=== PATIENT | male | born 1965 | race Caucasian/White ===

== ENCOUNTER 2018-04-28 23:54 | Emergency (ER) | payer MEDICAID ==
[~2018-04-28] VITALS: Ht 177.8 cm; Wt 88.5 kg
[2018-04-29] MEDS ORDERED: GABAPENTIN300 MG PO (00:34)
== END 2018-04-29 01:43 | disposition home or self-care (01) ==
LOC: ED 23:54
DX: S06.9X1A Unspecified intracranial injury with loss of consciousness of 30 minutes or less, initial encounter (principal); F10.129 Alcohol abuse with intoxication, unspecified; E11.40 Type 2 diabetes mellitus with diabetic neuropathy, unspecified; G47.30 Sleep apnea, unspecified; Z79.899 Other long term (current) 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; W07.XXXA Fall from chair, initial encounter
CPT/HCPCS: 70450; 72125; 99284-25

== ENCOUNTER 2019-01-20 19:40 | Emergency (ER) | payer MEDICAID ==
[~2019-01-20] VITALS: Ht 185.4 cm; Wt 99.8 kg
--- OUTSIDE RECORDS SUMMARY | ~2019-01-20 | XMS | Encounter Summary ---
Demographics + + + | Address | [address] | | | [place] [address] | + + + | Home Phone | | + + + | Preferred Language | Unknown | + + + | Marital Status | Single | + + + | Jewish Affiliation | Unknown | + + + | Race | White | + + + | Ethnic Group | Not or | + + + Author + + + | Author | [facility] | + + + | Organization | [facility] | + + + | Address | Unknown | + + + | Phone | Unavailable | + + + Support + + +---------+ + | Name | Relationship | Address | Phone | + + +---------+ + | Eleonora Altamirano | ECON | Unknown | | + + +---------+ + Care Team Providers + +------+ + | Care Student Liaison Officer Name | Role | Phone | + +------+ + | Silvana Sagastume | PCP | | + +------+ + Encounter Details +--------+ + + + + | Date | Type | Department | Care Team | Description | +--------+ + + + + | 11/29/ | Setter Helper | Orthopaedics at | Alexus Pineda | Back pain, | | 2017 | | [facility] [address] | [place] [address] | unspecified back | | | | Ave Mailcode: CH12A | | location, | | | | Center for [facility] | | unspecified back | | | | and Healing, | | pain laterality, | | | | Building | | unspecified | | | | Floor [facility] [place] | | chronicity (Primary | | | | [address] | | Dx) | | | | [phone] | | | +--------+ + + + + Social History + +-------+ +--------+------+ | Tobacco Use | Types | Packs/Day | Years | Date | | | | | Used | | + +-------+ +--------+------+ | Current Every Day | | | 17 | | | Smoker | | | | | + +-------+ +--------+------+ + +------+---+---+ | Smokeless Tobacco: | Chew | | | | Current User | | | | + +------+---+---+ + + + | Sex Assigned at | Date Recorded | | | | + + + | Not on file | | + + + + + + + | Job Start Date | Occupation | Industry | + + + + | Not on file | Not on file | Not on file | + + + + + + + + | Travel History | Travel Start | Travel End | + + + + + + | No recent travel history available. | + + documented as of this encounter Plan of Treatment Not on filedocumented as of this encounter Results X-RAY SPINE LUMBOSACRAL 2 VIEWS (11/30/2016 3:18 PM PDT) + + | Specimen | + + | | + + + + + | Narrative | Performed At | + + + | STUDY: SPINE LUMBOSACRAL 2 VIEWS HISTORY: Pain. COMPARISON: | [facility] | | None. FINDINGS: The vertebral body heights are preserved. | RADIOLOGY VOICE | | Relative preservation of the intervertebral disc heights with early | RECOGNITION | | clawlike osteophyte production at L3-L4. The alignment is | | | anatomic. There is no significant change in alignment between flexion | | | and extension imaging. Mild facet osteoarthrosis from L4-S1. | | | IMPRESSION: Mild facet osteoarthrosis at the lower lumbar spine | | | without a significant change in alignment between flexion and | | | extension imaging. I have personally reviewed the images and, | | | if necessary, edited the report. I agree with the report as now | | | presented. | | + + + + + | Procedure Note | + + | Service Account, Radiant Res In Interface - 11/30/2016 3:26 PM PDT STUDY: SPINE | | LUMBOSACRAL 2 VIEWSHISTORY: Pain.COMPARISON: None.FINDINGS: The vertebral body heights | | are preserved.Relative preservation of the intervertebral disc heights with early | | clawlike osteophyte production at L3-L4.The alignment is anatomic. There is no | | significant change in alignment between flexion and extension imaging.Mild facet | | osteoarthrosis from L4-S1.IMPRESSION: Mild facet osteoarthrosis at the lower lumbar | | spine without a significant change in alignment between flexion and extension imaging.I | | have personally reviewed the images and, if necessary, edited the report. I agree with | | the report as now presented. | | | |Relative preservation of the intervertebral disc heights with early clawlike osteophyte pro duction at L3-L4. | | | |The alignment is anatomic. There is no significant change in alignment between flexion and extension imaging. | | | |Mild facet osteoarthrosis from L4-S1. | | | |IMPRESSION: | | | |Mild facet osteoarthrosis at the lower lumbar spine without a significant change in alignme nt between flexion and extension imaging. | | | | | |I have personally reviewed the images and, if necessary, edited the report. I agree with t he report as now presented. | + + + +---------+ + + | Performing | Address | City/State/Zipcode | Phone Number | | Organization | | | | + +---------+ + + | [facility] | | | | | VOICE RECOGNITION | | | | + +---------+ + + X-RAY SCOLI SPINE ENTR MITCH FALK &LAT (11/30/2016 3:17 PM PDT) + + | Specimen | + + | | + + + + + | Narrative | Performed At | + + + | STUDY: SPINE ENTR SRVY STDY AP & LAT HISTORY: Pain. | [facility] | | COMPARISON: 11/30/2016 FINDINGS: There are 5 run-kyd-vsxwums | RADIOLOGY VOICE | | lumbar-type vertebral bodies. There is no significant curvature of | RECOGNITION | | the thoracolumbar spine on the frontal image. There is no significant | | | coronal imbalance. There is approximately 3 cm of negative sagittal | | | imbalance. The well-visualized vertebral body heights are | | | preserved. There is straightening of normal cervical lordosis. | | | IMPRESSION: Scoliosis survey as described above. I have | | | personally reviewed the images and, if necessary, edited the report. | | | I agree with the report as now presented. | | + + + + ---+ | Procedure Note | + ---+ | Service Account, Radiant Res In Interface - 11/30/2016 3:34 PM PDT STUDY: SPINE ENTR | | SRVY STDY AP & LATHISTORY: Pain.COMPARISON: 11/30/2016FINDINGS: There are 5 | | ole-odu-rqjyezl lumbar-type vertebral bodies.There is no significant curvature of the | | thoracolumbar spine on the frontal image. There is no significant coronal imbalance. | | There is approximately 3 cm of negative sagittal imbalance.The well-visualized vertebral | | body heights are preserved. There is straightening of normal cervical | | lordosis.IMPRESSION: Scoliosis survey as described above.I have personally reviewed the | | images and, if necessary, edited the report. I agree with the report as now presented. | |There are 5 tql-zeu-mbbvwpw lumbar-type vertebral bodies. | | | |There is no significant curvature of the thoracolumbar spine on the frontal image. There is no significant coronal imbalance. There is approximately 3 cm of negative sagittal imbalanc e. | | | |The well-visualized vertebral body heights are preserved. There is straightening of normal cervical lordosis. | | | |IMPRESSION: | | | |Scoliosis survey as described above. | | | | | |I have personally reviewed the images and, if necessary, edited the report. I agree with t shalonda report as now presented. | + ---+ + +---------+ + + | Performing | Address | City/State/Zipcode | Phone Number | | Organization | | | | + +---------+ + + | [facility] | | | | | VOICE RECOGNITION | | | | + +---------+ + + documented in this encounter Visit Diagnoses + + | Diagnosis | + + | Back pain, unspecified back location, unspecified back pain laterality, unspecified | | chronicity - Primary | + + documented in this encounter"
--- OUTSIDE RECORDS SUMMARY | ~2019-01-20 | XMS | Encounter Summary ---
Demographics + + + | Address | [address] | | | [place] [address] | + + + | Home Phone | | + + + | Preferred Language | Unknown | + + + | Marital Status | Single | + + + | Congregation Affiliation | Unknown | + + + | Race | White | + + + | Ethnic Group | Not or | + + + Author + + + | Author | [facility] | + + + | Organization | [facility] | + + + | Address | Unknown | + + + | Phone | Unavailable | + + + Support + + +---------+ + | Name | Relationship | Address | Phone | + + +---------+ + | Eleonora Altamirano | ECON | Unknown | | + + +---------+ + Care Team Providers + +------+ + | Care Research Hydraulic Engineer Name | Role | Phone | + +------+ + | Silvana Sagastume | PCP | | + +------+ + Encounter Details +--------+ + + + + | Date | Type | Department | Care Team | Description | +--------+ + + + + | 11/30/ | Hospital | Radiology/Imaging | Alexus Pineda | | | 2016 | Encounter | Lab at [facility] [address] | [place] | | | | | [address] Mailcode: | | | | | | [facility] | | | | | | and Healing, | | | | | | | | | | | | Floor [place], [place] | | | | | | [address] | | | | | | [phone] | | | +--------+ + + + [...]
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
--- OUTSIDE RECORDS SUMMARY | ~2019-01-20 | XMS | Encounter Summary ---
Demographics + + + | Address | [address] | | | [place] [address] | + + + | Home Phone | | + + + | Preferred Language | Unknown | + + + | Marital Status | Single | + + + | Religion Affiliation | Unknown | + + + | Race | White | + + + | Ethnic Group | Not or | + + + Author + + + | Author | [facility] | + + + | Organization | [facility] | + + + | Address | Unknown | + + + | Phone | Unavailable | + + + Support + + +---------+ + | Name | Relationship | Address | Phone | + + +---------+ + | Eleonora Altamirano | ECON | Unknown | | + + +---------+ + Care Team Providers + +------+ + | Care Readers' Advisory Service Librarian Name | Role | Phone | + [...] | with | [address] | [place], [place] | | | | | neurogenic | [facility], | [address] | | | | | claudication | [place] | Phone: | | | | | Facet | [address] | [phone] | | | | | arthropathy | Phone: | Fax: | | | | | Protrusion | [phone] | [phone] | | | | | of lumbar | Fax: | | | | | | intervertebr | [phone] | | | | | | al [...] | | | | stenosis | PA-C [address] | | | | | | with | [address] | | | | | | neurogenic | [place], | | | | | | claudication | [place] | | | | | | Facet | [phone] | | | | | | arthropathy | Phone: | | | | | | Procedures | [phone] | | | | | | ACUPUNCTURE | Fax: | | | | | | - EXTERNAL | [phone] | | | | | | ONLY [...] | | | | stenosis | PA-C 0072 | | | | | | with | [address] | | | | | | neurogenic | [facility], | | | | | | claudication | [place] | | | | | | Facet | [address] | | | | | | arthropathy | Phone: | | | | | | Procedures | [phone] | | | | | | PHYSICAL | Fax: | | | | | | THERAPY | [phone] | | | | | | REFERRAL [...] Closed | | Spine | Diagnoses | Isabella, | Harris, | | | | | Other | MAX Pina | Jared Ramírez PA-C | | | | | intervertebr | [address] | [address] | | | | | al disc | [address] | [address] | | | | | degeneration | [place], [place] | [place], [place] | | | | | , lumbar | [address] | [address] | | | | | region | Phone: | Phone: | | | | | | [phone] | [phone] | | | | | | Fax: | Fax: | | | | | | [phone] | [phone] | +--------+--------+ + + + + Encounter Details +--------+---------+ + + + | Date | Type | Department | Care Team | Description | +--------+---------+ + + + | 10/07/ | Office | Spine Center at | Jared Harris, | Lumbar stenosis with | | 2017 | Visit | [facility] [address] | [place] [address] | neurogenic | | | | [place]ondra Mailcode: | [place] [facility] [place] | claudication | | | | [facility] | [address] | (Primary Dx); Facet | | | | and Healing, | [phone] | arthropathy; | | | | Building [address] | | Protrusion of lumbar | | | | [place], [place] | | intervertebral disc | | | | [address] | | | | | | [phone] | | | +--------+---------+ + + + [...] without relief -He reports numerous injections at [facility] including Epidural steroid injectio ns x 6 with 20% relief in pain x 1 week and multiple lumbar RFAs, the last 2 months with 30% x 2 weeks. The patient has not tried: -Acupuncture Review of Systems: All other systems were reviewed by me personally on a complete review of systems questionna jamil that will be scanned into [employer]. Current medication list: Current Outpatient Prescriptions Medication [...] pressure) dependence DMII (diabetes mellitus, type 2) ([facility]) GERD (gastroesophageal reflux disease) DAXA [...] to date includi ng numerous injections in [place]. MRI outlined above with central disc protrusion at L5-S1 an d multifactorial central stenosis at L3-4 including congential narrowing and facet hypertrop hy. Plan: -Xrays today without dynamic instability -Asked patient to bring current medications to next appointment to ensure they are updated -Will track down EMG/NCS report from [facility] 1 year ago and will update EPIC if this adds to diagnosis -Counseled on necessity of nicotine cessation -Counseled on multifactorial nature of axial spine pain, including facet arthropathy -Referral to Acupuncture -Referral to Physical Therapy -Continue management of pain medication by PCP -Referral to [facility] spine surgeon I spent 46 minutes wfwq-vp-clhy with the patient. I spent more than 50% of this visit in co ordination of care and counseling in which we discussed diagnosis, treatment, imaging studie s and follow-up. Jared Harris PA-C SPINE CENTER AT [address] [address] [facility] OPEN NOTE [[id number]] documented in this e ncounter Plan of [...]
--- OUTSIDE RECORDS SUMMARY | ~2019-01-20 | XMS | Encounter Summary ---
Demographics + + + | Address | [address] | | | [place] [address] | + + + | Home Phone [...] Author + + + | Author | [facility] | + + + | Organization | [facility] | + + + | Address | Unknown | + + + | Phone | Unavailable | + + + Support + + +---------+ + | Name | Relationship | Address | Phone | + + +---------+ + | Eleonora Altamirano | ECON | Unknown | | + + +---------+ + Care Team Providers + +------+ + | Care Event Marketing Intern Name | Role | Phone | + +------+ + | Silvana Sagastume | PCP | | + +------+ + Encounter Details +--------+ + + + + | Date | Type | Department | Care Team | Description | +--------+ + + + + | 11/30/ | Hospital | Radiology/Imaging | Alexus Pineda | | | 2016 | Encounter | Lab at [facility] [address] | [place] José | | | | | [address] Mailcode: | | | | | | [facility] | | | | | | and Healing, | | | | | | | | | | | | Floor [place], [place] | | | | | | [address] | | | | | | [phone] | | | +--------+ + + + [...] | Results for this | | ENTR VY AP &LAT | e | 3:17 PM [...] this encounter Results X-RAY SCOLI SPINE ENTR SRVY AP &LAT (11/30/2016 3:17 PM PDT) + + | Specimen | + + | | + + + + + | Narrative | Performed At | + + + | STUDY: SPINE ENTR SRVY KUSUM AP & LAT HISTORY: Pain. | [facility] | | COMPARISON: 11/30/2016 FINDINGS: There are 5 hgd-wth-abdcwyw | RADIOLOGY VOICE | | lumbar-type vertebral [...] Pain.COMPARISON: 11/30/2016FINDINGS: There are 5 | | eej-hha-nswoike lumbar-type vertebral bodies.There is no significant curvature [...] as now presented. | |There are 5 trl-ohu-ysrvtxz lumbar-type vertebral bodies. | | | |There [...]
--- OUTSIDE RECORDS SUMMARY | ~2019-01-20 | XMS | Clinical Summary ---
Demographics + + + | Address | [address] | | | [place] [address] | + + + | Home Phone | | + + + | Preferred Language | Unknown | + + + | Marital Status | Single | + + + | Anabaptism Affiliation | Unknown | + + + [...] Team Providers + +------+ + | Care Outreach Associate Name | Role | Phone | + +------+ + | Tanika Silvana MAX | PCP | | + +------+ + Source Comments LUPE is fully live on both [facility] Ambulatory and [facility] InPatient.[facility] Allergies No Known Allergies Medications + [...] | | | + +--------+ +--------+-------+---------+--------+ | 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
--- OUTSIDE RECORDS SUMMARY | ~2019-01-20 | XMS | Encounter Summary ---
Demographics + + + | Address | [address] | | | [place] [address] | + + + | Home Phone | | + + + | Preferred Language | Unknown | + + + | Marital Status | Single | + + + | Adventist Affiliation | Unknown | + + + [...] Team Providers + +------+ + | Care Adjunct Professor Name | Role | Phone | + +------+ + | Silvana Sagastume | PCP | | + +------+ + Encounter Details +--------+ + + + + | Date | Type | Department | Care Team | Description | +--------+ + + + + | 11/29/ | Foxing Cutting Machine Operator | Orthopaedics at | Alexus Pineda | Back pain, | | 2017 | | [facility] [address] | [place] José | unspecified back | | | | Ave Mailcode: CH12A | | location, | | | | [facility] | | unspecified back | | | | and Healing, | | pain laterality, | | | | Building | | unspecified | | | | Floor [facility] [place] | | chronicity (Primary | | | | [address] | | Dx) | | | | [phone] | | | +--------+ + + + [...] | COMPARISON: 11/30/2016 FINDINGS: There are 5 kbw-vyv-hprtssf | RADIOLOGY VOICE | | lumbar-type vertebral [...] Pain.COMPARISON: 11/30/2016FINDINGS: There are 5 | | vzv-ezo-gfoxdgo lumbar-type vertebral bodies.There is no significant curvature [...] as now presented. | |There are 5 kue-hfg-fnnnkbd lumbar-type vertebral bodies. | | | |There [...]
--- OUTSIDE RECORDS SUMMARY | ~2019-01-20 | XMS | Encounter Summary ---
Demographics + + + | Address | [address] | | | [place] [address] | + + + | Home Phone | | + + + | Preferred Language | Unknown | + + + | Marital Status | Single | + + + | Amish Affiliation | Unknown | + + + | Race | White | + + + | Ethnic Group | Not or | + + + Author + + + | Author | [facility] | + + + | Organization | [facility] | + + + | Address | Unknown | + + + | Phone | Unavailable | + + + Support + + +---------+ + | Name | Relationship | Address | Phone | + + +---------+ + | Eleonora Altamirano | ECON | Unknown | | + + +---------+ + Care Team Providers + +------+ + | Care Manufacturing Mechanic Name | Role | Phone | + +------+ + | Silvana Sagastume | PCP | | + +------+ + Encounter Details +--------+ + + + + | Date | Type | Department | Care Team | Description | +--------+ + + + + | 11/30/ | Hospital | Radiology/Imaging | Alexus Pineda | | | 2016 | Encounter | Lab at [facility] [address] | [place] José | | | | | [address] Mailcode: | | | | | | [facility] | | | | | | and Healing, | | | | | | | | | | | | Floor [place], [place] | | | | | | [address] | | | | | | [phone] | | | +--------+ + + + [...] | COMPARISON: 11/30/2016 FINDINGS: There are 5 drt-diu-cppyoxb | RADIOLOGY VOICE | | lumbar-type vertebral [...] Pain.COMPARISON: 11/30/2016FINDINGS: There are 5 | | yxe-bkd-fpwzqmr lumbar-type vertebral bodies.There is no significant curvature [...] as now presented. | |There are 5 szt-jpx-vnrrvdb lumbar-type vertebral bodies. | | | |There [...]
--- OUTSIDE RECORDS SUMMARY | ~2019-01-20 | XMS | Encounter Summary ---
Demographics + + + | Address | [address] | | | [place] [address] | + + + | Home Phone | | + + + | Preferred Language | Unknown | + + + | Marital Status | Single | + + + | Denominational Affiliation | Unknown | + + + | Race | White | + + + | Ethnic Group | Not or | + + + Author + + + | Author | [facility] | + + + | Organization | [facility] | + + + | Address | Unknown | + + + | Phone | Unavailable | + + + Support + + +---------+ + | Name | Relationship | Address | Phone | + + +---------+ + | Eleonora Altamirano | ECON | Unknown | | + + +---------+ + Care Team Providers + +------+ + | Care Intertype Operator Name | Role | Phone | + +------+ + | Silvana Sagastume | PCP | | + +------+ + Encounter Details +--------+ + + + + | Date | Type | Department | Care Team | Description | +--------+ + + + + | 11/30/ | Hospital | Radiology/Imaging | Alexus Pineda | | | 2016 | Encounter | Lab at [facility] [address] | [place] José | | | | | [address] Mailcode: | | | | | | [facility] | | | | | | and Healing, | | | | | | | | | | | | Floor [place], [place] | | | | | | [address] | | | | | | [phone] | | | +--------+ + + + [...]
--- OUTSIDE RECORDS SUMMARY | ~2019-01-20 | XMS | Encounter Summary ---
Demographics + + + | Address | [address] | | | [place] [address] | + + + | Home Phone | | + + + | Preferred Language | Unknown | + + + | Marital Status | Single | + + + | Rastafarian Affiliation | Unknown | + + + | Race | White | + + + | Ethnic Group | Not or | + + + Author + + + | Author | [facility] | + + + | Organization | [facility] | + + + | Address | Unknown | + + + | Phone | Unavailable | + + + Support + + +---------+ + | Name | Relationship | Address | Phone | + + +---------+ + | Eleonora Altamirano | ECON | Unknown | | + + +---------+ + Care Team Providers + +------+ + | Care Manager Sales Name | Role | Phone | + +------+ + | Silvana Sagastume | PCP | | + +------+ + Encounter Details +--------+ + + + + | Date | Type | Department | Care Team | Description | +--------+ + + + + | 10/07/ | Hospital | Radiology/Imaging | Jared Harris, | | | 2016 | Encounter | Lab at [facility] [address] | [place] [address] | | | | | [address] Mailcode: | [place], [place] | | | | | [facility] | [address] | | | | | Health and Healing, | [phone] | | | | | [address] | | | | | | [place], [place] | | | | | | [address] | | | | | | [phone] | | | +--------+ + + + [...] | | | 17 | | | release(/EC) | BEFORE A MEAL | | | [...]
--- OUTSIDE RECORDS SUMMARY | ~2019-01-20 | XMS | Clinical Summary ---
Demographics + + + | Address | [address] | | | [place] [address] | + + + | Home Phone [...] Team Providers + +------+ + | Care Hotel Breakfast Attendant Name | Role | Phone | + +------+ + | Tanika Silvana MAX | PCP | | + +------+ + Source Comments LUPE is fully live on both [facility] Ambulatory and [facility] InPatient.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
--- OUTSIDE RECORDS SUMMARY | ~2019-01-20 | XMS | Encounter Summary ---
Demographics + + + | Address | [address] | | | [place] [address] | + + + | Home Phone | | + + + | Preferred Language | Unknown | + + + | Marital Status | Single | + + + | Sikhism Affiliation | Unknown | + + + | Race | White | + + + | Ethnic Group | Not or | + + + Author + + + | Author | [facility] | + + + | Organization | [facility] | + + + | Address | Unknown | + + + | Phone | Unavailable | + + + Support + + +---------+ + | Name | Relationship | Address | Phone | + + +---------+ + | Eleonora Altamirano | ECON | Unknown | | + + +---------+ + Care Team Providers + +------+ + | Care Labor Relations Manager Name | Role | Phone | + +------+ + | Silvana Sagastume | PCP | | + +------+ + Encounter Details +--------+ + + + + | Date | Type | Department | Care Team | Description | +--------+ + + + + | 10/07/ | Hospital | Radiology/Imaging | Jared Harris, | | | 2016 | Encounter | Lab at [facility] [address] | [place] [address] | | | | | [address] Mailcode: | [place], [place] | | | | | [facility] | [address] | | | | | Health and Healing, | [phone] | | | | | [address] | | | | | | [place], [place] | | | | | | [address] | | | | | | [phone] | | | +--------+ + + + [...]
--- OUTSIDE RECORDS SUMMARY | ~2019-01-20 | XMS | Encounter Summary ---
Demographics + + + | Address | [address] [facility] | | | [place] [address] | + + + | Home Phone | | + + + | Preferred Language | Unknown | + + + | Marital Status | Single | + + + | Mandaen Affiliation | Unknown | + + + | Race | White | + + + | Ethnic Group | Not or | + + + Author + + + | Author | [facility] | + + + | Organization | [facility] | + + + | Address | Unknown | + + + | Phone | Unavailable | + + + Support + + +---------+ + | Name | Relationship | Address | Phone | + + +---------+ + | Eleonora Altamirano | ECON | Unknown | | + + +---------+ + Care Team Providers + +------+ + | Care Cake Puller Name | Role | Phone | + [...] | | | with | Ave | [place], [place] | | | | | neurogenic | [place], [place] | [address] | | | | | claudication | [address] | Phone: | | | | | Procedures | Phone: | [phone] | | | | | REQUEST TO | [phone] | Fax: | | | | | SURGERY | Fax: | [phone] | | | | | TOOL BUILDER | [phone] | | | | | | [place] | | | | | | | LAMINEC/FACE | | | | | | | TECT/FORAMIN | | | | | | | ,LUMBAR [place] | | | | | | | [...] | | stenosis | PA-C [address] | | | | | with | [address] | [place], [place] | | | | | neurogenic | [place], | [address] | | | | | claudication | [place] | Phone: | | | | | Facet | [address] | [phone] | | | | | arthropathy | Phone: | Fax: | | | | | Protrusion | [phone] | [phone] | | | | | of lumbar | Fax: | | | | | | intervertebr | [phone] | | | | | | al [...] with | | 2017 | Visit | [facility] [address] | [address] | neurogenic | | | | Ave Mailcode: | [place], [place] | claudication | | | | [facility] | [address] | (Primary Dx) | | | | and Healing, | [phone] | | | | | [facility] [address] | | | | | | [place], [place] | | | | | | [address] | | | | | | [phone] | | | +--------+---------+ + + + [...] of seeing Mr. Benjamin Altamirano at the [facility] on November [facility], [facility]. As you know, Mr. Altamirano is a 51-year-old man who presents to me with a chief complaint of low back pain and bilateral lower extremity pain. To summarize his history of present illness, Mr. Altamirano' back pain started in 2001 while w orking at [facility]. After falling off a 4-bryant 5 or [...] vasculitis. Social History: Mr. Altamirano lives in [place], [place]. He does not work. 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 Sensation is intact to light touch in all 4 extremities. On reflex examination, there is no De La Torre sign and no ankle cl onus. Coordination is intact to cegbki-fbfq-gphifb bilaterally without dysmetria. His regu lar, toe, [...] in his care. I spent 15 minutes uvpd-bz-sojb with the patient. I spent more than 50% of this visit in c oordination of care and counseling, in which we discussed the diagnosis, treatment, imaging studies, and follow-up. Sincerely, MD OSITO YanezT/RENE /[id number] CC: ANTONIO Strickland FNP han, Oscar Ramírez MD - 11/30 3:15 PM PDTDictation #1 [id number] documented in this encou nter Plan of Treatment Not on filedocumented as of this encounter Visit Diagnoses + + | Diagnosis | + + | Lumbar stenosis with neurogenic claudication - Primary Spinal stenosis, lumbar | | region, with neurogenic claudication | + + documented in this encounter
--- OUTSIDE RECORDS SUMMARY | ~2019-01-20 | XMS | Encounter Summary ---
Demographics + + + | Address | [address] | | | [place] [address] | + + + | Home Phone [...] Author + + + | Author | [facility] | + + + | Organization | [facility] | + + + | Address | Unknown | + + + | Phone | Unavailable | + + + Support + + +---------+ + | Name | Relationship | Address | Phone | + + +---------+ + | Eleonora Altamirano | ECON | Unknown | | + + +---------+ + Care Team Providers + +------+ + | Care Press Smith Helper Name | Role | Phone | + [...] | | | with | Ave | [place], [place] | | | | | neurogenic | [place], [place] | [address] | | | | | claudication | [address] | Phone: | | | | | Procedures | Phone: | [phone] | | | | | REQUEST TO | [phone] | Fax: | | | | | SURGERY | Fax: | [phone] | | | | | COMPUTER AIDED DESIGN TECHNICIAN | [phone] | | | | | | PA | | | | | | | LAMINEC/FACE | | | | | | | TECT/FORAMIN | | | | | | | ,LUMBAR PA | | | | | | | [...] | | | neurogenic | [place], | [address] | | | | | claudication | [place] | Phone: | | | | | Facet | [address] | [phone] | | | | | arthropathy | Phone: | Fax: | | | | | Protrusion | [phone] | [phone] | | | | | of lumbar | Fax: | | | | | | intervertebr | [phone] | | | | | | al [...] with | | 2017 | Visit | [facility] [address] | [address] | neurogenic | | | | Ave Mailcode: | [facility] [place] | claudication | | | | [facility] | [address] | (Primary Dx) | | | | and Healing, | [phone] | | | | | [facility] 1 | | | | | | [place], [place] | | | | | | [address] | | | | | | [phone] | | | +--------+---------+ + + + [...] of seeing Mr. Benjamin Altamirano at the [facility] on November [facility], [facility]. As you know, Mr. Altamirano is a 51-year-old man who presents to me with a chief complaint of low back pain and bilateral lower extremity pain. To summarize his history of present illness, Mr. Altamirano' back pain started in 2001 while w orking at [facility]. After falling off a 4-bryant 5 [...] vasculitis. Social History: Mr. Altamirano lives in [place], [place]. He does not work. He does [...] as 5/5 strength in the bilateral hand animal cytologist, biceps, triceps, deltoids, hip flexors, hamstrin gs, quadriceps, tibialis anterior, and gastrocnemius muscles. Sensation is intact to light touch in all 4 extremities. On reflex examination, there is no De La Torre sign and no ankle cl onus. Coordination is intact to eqhecz-vtfu-qubibi bilaterally without dysmetria. His regu lar, toe, [...] in his care. I spent 15 minutes vrmo-sh-ykvw with the patient. I spent more than 50% of this visit in c oordination of care and counseling, in which we discussed the diagnosis, treatment, imaging studies, and follow-up. Sincerely, MD OSITO YanezT/RENE /[id number] CC: ANTONIO Strickland FNP han, Oscar Ramírez MD - 11/30 3:15 PM PDTDictation #1 [id number] documented in this encou nter Plan of Treatment Not on filedocumented as of this encounter Visit Diagnoses + + | Diagnosis | + + | Lumbar stenosis with neurogenic claudication - Primary Spinal stenosis, lumbar | | region, with neurogenic claudication | + + documented in this encounter
[~2019-01-20 19:40] MED LIST: GABAPENTIN300 MG PO; LANTUS SOL100 UNIT/1 SUB-Q; PROZAC20 MG PO
--- NOTE | 2019-01-21 07:19 | EKG ---
[facility] [address] [facility] [place] [address] Signed Normal sinus rhythm Left axis deviation Incomplete right bundle branch block Abnormal ECG When compared with ECG of 24-OCT-2018 13:23, Incomplete right bundle branch block is now present Confirmed by MICKY CISNEROS MD ([id number]) on 01/21/2019 7:19:24 AM Electronically Signed By: MICKY CISNEROS MD 01/21/19 0719 PATIENT NAME: MURALIBRIANNA Electrocardiogram DATE OF : 69 PHYSICIAN: MICKY CISNEROS MD REPORT #: [id number] REPORT IS CONFIDENTIAL AND NOT TO BE RELEASED WITHOUT AUTHORIZATION
--- NOTE | 2019-01-21 07:20 | EKG ---
[facility] [address] [facility] [place], [place] [address] Signed Normal sinus rhythm Left axis deviation Abnormal ECG When compared with ECG of 20-JAN-2019 20:07, (Unconfirmed) No significant change was found Confirmed by MICKY CISNEROS MD ([id number]) on 01/21/2019 7:20:26 AM Electronically Signed By: MICKY CISNEROS MD 01/21/19 0720 PATIENT NAME: MURALIBRIANNA Electrocardiogram DATE OF : 69 PHYSICIAN: MICKY CISNEROS MD REPORT #: [id number] REPORT IS CONFIDENTIAL AND NOT TO BE RELEASED WITHOUT AUTHORIZATION
== END 2019-01-21 07:56 | disposition home or self-care (01) ==
LOC: ED 19:40
DX: T42.6X2A Poisoning by other antiepileptic and sedative-hypnotic drugs, intentional self-harm, initial encounter (principal); E11.40 Type 2 diabetes mellitus with diabetic neuropathy, unspecified; G47.30 Sleep apnea, unspecified; Z79.899 Other long term (current) 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; Z79.4 Long term (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 insulin
CPT/HCPCS: 51701; 80053; 80176; 81001; 84443; 85025; 93005; 93010; 99284-25; G0480; J7030

== ENCOUNTER 2019-08-04 13:54 | Emergency (ER) | payer MEDICAID ==
[~2019-08-04] VITALS: Ht 185.4 cm; Wt 99.8 kg
--- OUTSIDE RECORDS SUMMARY | ~2019-08-04 | XMS | Encounter Summary ---
Demographics + + + | Address | [address] | | | [place] [address] | + + + | Home Phone | | + + + | Preferred Language | Unknown | + + + | Marital Status | Single | + + + | Sabianist Affiliation | Unknown | + + + | Race | White | + + + | Ethnic Group | Not or | + + + Author + + + | Author | [facility] | + + + | Organization | [facility] | + + + | Address | Unknown | + + + | Phone | Unavailable | + + + Support + + +---------+ + | Name | Relationship | Address | Phone | + + +---------+ + | Eleonora Altamirano | ECON | Unknown | | + + +---------+ + Care Team Providers + +------+ + | Care Loan Operations Specialist Name | Role | Phone | + +------+ + | Silvana Sagastume | PCP | | + +------+ + Encounter Details +--------+ + + + + | Date | Type | Department | Care Team | Description | +--------+ + + + + | 10/07/ | Hospital | Radiology/Imaging | Jared Harris, | | | 2017 | Encounter | Lab at [facility] [address] | PA-C [address] | | | | | [address] Mailcode: | [place] | | | | | [facility] | [address] | | | | | Health and Healing, | [phone] | | | | | [address] | | | | | | Floor [place], [place] | | | | | | [address] | | | | | | [phone] | | | +--------+ + + + [...] + + documented as of this encounter Medications at Time of Discharge + + + +---------+ + + | Medication | Sig | Dispensed | Refills | Start | End Date | | | | | | Date | | + + + +---------+ + + | ALL DAY ALLERGY 10 | Take 10 mg by mouth | | 10 | 09/22/19 | | | mg oral tablet | once daily. | | | 17 | | + + + +---------+ + + | baclofen 20 mg | TAKE 1 TABLET BY | | 0 | 09/20/19 | | | oral tablet | MOUTH 3 TIMES DAILY | | | 17 | | | | FOR 14 DAYS. | | | | | + + + +---------+ + + | DULoxetine 30 mg | TAKE ONE CAPSULE BY | | 2 | 09/16/19 | | | oral capsule,delayed | MOUTH ONCE DAILY FOR | | | 17 | | | release(DR/EC) | 30 DAYS. | | | | | + + + +---------+ + + | gabapentin 300 mg | TAKE THREE CAPSULES | | 3 | 09/13/19 | | | oral capsule | BY MOUTH EVERY | | | 17 | | | | MORNING, FOUR | | | | | | | CAPSULES AT NOON, | | | | | | | AND FOUR CAPSULES | | | | | | | EVERY EVENING | | | | | + + + +---------+ + + | GLIPIZIDE ORAL | Take by mouth two | | 0 | | | | | times daily. | | | | | + + + +---------+ + + | lisinopril 20 mg | Take 20 mg by mouth | | 1 | 09/10/19 | | | oral tablet | once daily. | | | 17 | | + + + +---------+ + + | omeprazole 20 mg | TAKE ONE CAPSULE BY | | 1 | 09/22/19 | | | oral capsule,delayed | MOUTH ONCE DAILY | | | 17 | | | release(DR/EC) | BEFORE A MEAL | | | | | + + + +---------+ + + documented as of this encounter Plan of Treatment Not on filedocumented as of this encounter Procedures + +--------+ + + + | Procedure Name | Priori | Date/Time | Associated Diagnosis | Comments | | | ty | | | | + +--------+ + + + | X-RAY SPINE | Routin | 10/07/2016 | Lumbar stenosis | Results for this | | LUMBOSACRAL 3 VIEWS | e | 11:53 AM | with neurogenic | procedure are in the | | | | PDT | claudication Facet | results section. | | | | | arthropathy | | + +--------+ + + + documented in this encounter Results X-RAY SPINE LUMBOSACRAL 3 VIEWS (10/07/2016 11:53 AM PDT) + + | Specimen | + + | | + + + + + | Narrative | Performed At | + + + | STUDY: SPINE LUMBOSACRAL 3 VIEWS 10/07/16 11:43:26 HISTORY: | [facility] | | Evaluate alignment and for instability. COMPARISON: 09/14/2016 | RADIOLOGY VOICE | | FINDINGS: There is mild lumbar levocurvature. Otherwise, | RECOGNITION | | alignment is normal. There is no fracture or focal osseous | | | destruction. Mild disc space narrowing is seen at L5-S1 and mild | | | multilevel endplate spurring. There is L4-S1 facet arthropathy. The | | | soft tissues are unremarkable. IMPRESSION: Mild lumbar | | | levocurvature. No evidence of dynamic instability. Mild L5-S1 | | | degenerative disc disease, multilevel degenerative endplate spurring | | | and L4-S1 facet arthropathy. I have personally reviewed the | | | images and, if necessary, edited the report. I agree with the report | | | as now presented. | | + + + + + | Procedure Note | + + | Service Account, Radiant Res In Interface - 10/07/2016 3:23 PM PDT STUDY: SPINE | | LUMBOSACRAL 3 VIEWS 10/07/16 11:43:26HISTORY: Evaluate alignment and for | | instability.COMPARISON: 09/14/2016FINDINGS: There is mild lumbar levocurvature. Otherwise, | | alignment is normal. There is no fracture or focal osseous destruction. Mild disc space | | narrowing is seen at L5-S1 and mild multilevel endplate spurring. There is L4-S1 facet | | arthropathy. The soft tissues are unremarkable.IMPRESSION: Mild lumbar levocurvature. No | | evidence of dynamic instability.Mild L5-S1 degenerative disc disease, multilevel | | degenerative endplate spurring and L4-S1 facet arthropathy.I have personally reviewed | | the images and, if necessary, edited the report. I agree with the report as now | | presented. | | | |IMPRESSION: | | | |Mild lumbar levocurvature. No evidence of dynamic instability. | | | |Mild L5-S1 degenerative disc disease, multilevel degenerative endplate spurring and L4-S1 f acet arthropathy. | | | | | | | |I have [...] + | Diagnosis | + + | Lumbar stenosis with neurogenic claudication Spinal stenosis, lumbar region, with | | neurogenic claudication | + + | Facet arthropathy Spondylosis of unspecified site without mention of myelopathy | + + documented in this encounter"
--- OUTSIDE RECORDS SUMMARY | ~2019-08-04 | XMS | Encounter Summary ---
Demographics + + + | Address | [address] | | | [place] [address] | + + + | Home Phone | | + + + | Preferred Language | Unknown | + + + | Marital Status | Single | + + + | Protestant Affiliation | Unknown | + + + [...] Team Providers + +------+ + | Care Perinatal Specialist Name | Role | Phone | + +------+ + | Silvana Sagastume | PCP | | + +------+ + Encounter Details +--------+ + + + + | Date | Type | Department | Care Team | Description | +--------+ + + + + | 11/30/ | Hospital | Radiology/Imaging | Alexus Pineda | | | 2016 | Encounter | Lab at [facility] [address] PA-C | | | | | [place] Mailcode: | | | | | | [facility] | | | | | | Health and Healing, | | | | | | | | | | | | Floor [place], [place] | | | | | | [address] | | | | | | [phone] | | | +--------+ + + + [...]
--- OUTSIDE RECORDS SUMMARY | ~2019-08-04 | XMS | Clinical Summary ---
Demographics + + + | Address | [address] | | | [place] [address] | + + + | Home Phone | | + + + | Preferred Language | Unknown | + + + | Marital Status | Single | + + + | Buddhist Affiliation | Unknown | + + + | Race | White | + + + | Ethnic Group | Not or | + + + Author + + + | Author | [facility] | + + + | Organization | [facility] | + + + | Address | Unknown | + + + | Phone | Unavailable | + + + Support + + +---------+ + | Name | Relationship | Address | Phone | + + +---------+ + | Eleonora Altamirano | ECON | Unknown | | + + +---------+ + Care Team Providers + +------+ + | Care Industrial Yard Brake Coupler Name | Role | Phone | + +------+ + | Tanika Silvana MAX | PCP | | + +------+ + Source Comments LUPE is fully live on both [facility] Ambulatory and [facility] InPatient.[facility] Allergies No Known Allergies Medications + + + +---------+------+------+-------+ | Medication | Sig | Dispensed | Refills | Star | End | Statu | | | | | | t | Date | s | | | | | | Date | | | + + + +---------+------+------+-------+ | baclofen 20 mg | TAKE 1 TABLET BY | | 0 | 07/1 | | Activ | | oral tablet | MOUTH 3 TIMES DAILY | | | 0/20 | | e | | | FOR 14 DAYS. | | | 17 | | | + + + +---------+------+------+-------+ | ALL DAY ALLERGY 10 | Take 10 mg by mouth | | 10 | 07 | | Activ | | mg oral tablet | once daily. | | | 2/20 | | e | | | | | | 17 | | | + + + +---------+------+------+-------+ | DULoxetine 30 mg | TAKE ONE CAPSULE BY | | 2 | 07/0 | | Activ | | oral capsule,delayed | MOUTH ONCE DAILY FOR | | | 08/30 | | e | | release(DR/EC) | 30 DAYS. | | | 17 | | | + + + +---------+------+------+-------+ | gabapentin 300 mg | TAKE THREE CAPSULES | | 3 | /0 | | Activ | | oral capsule | BY MOUTH EVERY | | | 05/30 | | e | | | MORNING, FOUR | | | 17 | | | | | CAPSULES AT NOON, | | | | | | | | AND FOUR CAPSULES | | | | | | | | EVERY EVENING | | | | | | + + + +---------+------+------+-------+ | lisinopril 20 mg | Take 20 mg by mouth | | 1 | 06/3 | | Activ | | oral tablet | once daily. | | | 020 | | e | | | | | | 17 | | | + + + +---------+------+------+-------+ | omeprazole 20 mg | TAKE ONE CAPSULE BY | | 1 | 07/ | | Activ | | oral capsule,delayed | MOUTH ONCE DAILY | | | 2/20 | | e | | release(DR/EC) | BEFORE A MEAL | | | 17 | | | + + + +---------+------+------+-------+ | GLIPIZIDE ORAL | Take by mouth two | | 0 | | | Activ | | | times daily. | | | | | e | + + + +---------+------+------+-------+ Active Problems + + + | Problem | Noted Date | + + + | Lumbar stenosis with neurogenic claudication | 11/30/2016 | + + + Social History + +-------+ [...] recent travel history available. | + + Last Filed Vital Signs + [...] + + + + | Height | 185.4 cm (6' 1") | 10/07/2016 10:40 AM | | | | | PDT | | + + + + + | Body Mass Index | 30.91 | 10/07/2016 10:40 AM | | | | | PDT | | + + + + + Plan of Treatment + + + + + | Health Maintenance | Due Date | Last Done | Comments | + + + + + | Pneumococcal | | | | | vaccination (1 of 1 | 3 | | | | - PPSV23) | | | | + + + + + | Influenza (Flu) | | | | | vaccination (#1) | 9 | | | + + + + [...] | | | + +--------+ +--------+-------+---------+--------+ | MEDICAL CASH POSTER MEDICAID | MEDICAL CASH POSTER | xxxxxxxx | 03/13/19 | | | Medica | | | PACIFI | | 20-Pre | | | id | | | CSOURC | | sent | | | | | | E | | | | | | + [...] Person | Self | [birth year] | [address] | | | al/Jatinder | | 1965 | [phone] | [place] [address] | | | [place] | | | 7 (Home) | | + +--------+ +--------+ + +
--- OUTSIDE RECORDS SUMMARY | ~2019-08-04 | XMS | Encounter Summary ---
Demographics + + + | Address | [address] | | | [place] [address] | + + + | Home Phone | | + + + | Preferred Language | Unknown | + + + | Marital Status | Single | + + + | Uatsdin Affiliation | Unknown | + + + | Race | White | + + + | Ethnic Group | Not or | + + + Author + + + | Author | [facility] | + + + | Organization | [facility] | + + + | Address | Unknown | + + + | Phone | Unavailable | + + + Support + + +---------+ + | Name | Relationship | Address | Phone | + + +---------+ + | Eleonora Altamirano | ECON | Unknown | | + + +---------+ + Care Team Providers + +------+ + | Care Spikemaking Supervisor Name | Role | Phone | + [...] | | Lumbar | Jared D, | [address], [address] | | | | | stenosis | PA-C [address] | | | | | with | [address] | [place], [place] | | | | | neurogenic | [place], [place] | [address] | | | | | claudication | [address] | Phone: | | | | | Facet | Phone: | [phone] | | | | | arthropathy | [phone] | Fax: | | | | | Protrusion | Fax: | [phone] | | | | | of lumbar | [phone] | | | | | | intervertebr [...] | stenosis | PA-C [address] | | | | | | with | [address] | | | | | | neurogenic | [place], [place] | | | | | | claudication | [address] | | | | | | Facet | Phone: | | | | | | arthropathy | [phone] | | | | | | Procedures | Fax: | | | | | | ACUPUNCTURE | [phone] | | | | | | - EXTERNAL | | | | | | | ONLY [...] | | | | stenosis | PA-C [address] | | | | | | with | [address] | | | | | | neurogenic | [place], [place] | | | | | | claudication | [address] | | | | | | Facet | Phone: | | | | | | arthropathy | [phone] | | | | | | Procedures | Fax: | | | | | | PHYSICAL | [phone] | | | | | | THERAPY | | | | | | | REFERRAL [...] Closed | | Spine | Diagnoses | [place], | Harris, | | | | | Other | MAX Pina | Jared Ramírez PA-C | | | | | intervertebr | [address] | [address] | | | | | al disc | Ave | Ave | | | | | degeneration | [place], [place] | [place], [place] | | | | | , lumbar | [address] | [address] | | | | | region | Phone: | Phone: | | | | | | [phone] | [phone] | | | | | | Fax: | Fax: | | | | | | [phone] | [phone] | +--------+--------+ + + + + Encounter Details +--------+---------+ + + + | Date | Type | Department | Care Team | Description | +--------+---------+ + + + | 10/07/ | Office | Spine Center at | Jared Harris, | Lumbar stenosis with | | 2017 | Visit | [facility] [address] | PA-C [address] | neurogenic | | | | Ave Mailcode: | [place] [facility] [place] | claudication | | | | [facility] | [address] | (Primary Dx); Facet | | | | and Healing, | [phone] | arthropathy; | | | | [address] | | Protrusion of lumbar | | | | [place], [place] | | intervertebral disc | | | | [address] | | | | | | [phone] | | | +--------+---------+ + + + [...] without relief -He reports numerous injections at [facility] including Epidural steroid injectio ns x 6 with 20% relief in pain x 1 week and multiple lumbar RFAs, the last 2 months with 30% x 2 weeks. The patient has not tried: -Acupuncture Review of Systems: All other systems were reviewed by me personally on a complete review of systems questionna jamil that will be scanned into [employer]. Current medication list: Current Outpatient Prescriptions Medication [...] pressure) dependence DMII (diabetes mellitus, type 2) ([facility]) GERD (gastroesophageal reflux disease) DAXA (obstructive sleep [...] to date includi ng numerous injections in [place]. MRI outlined above with central disc protrusion at L5-S1 an d multifactorial central stenosis at L3-4 including congential narrowing and facet hypertrop hy. Plan: -Xrays today without dynamic instability -Asked patient to bring current medications to next appointment to ensure they are updated -Will track down EMG/NCS report from [place] 1 year ago and will update EPIC if this adds to diagnosis -Counseled on necessity of nicotine cessation -Counseled on multifactorial nature of axial spine pain, including facet arthropathy -Referral to Acupuncture -Referral to Physical Therapy -Continue management of pain medication by PCP -Referral to [facility] spine surgeon I spent 46 minutes ywek-iw-zurz with the patient. I spent more than 50% of this visit in co ordination of care and counseling in which we discussed diagnosis, treatment, imaging studie s and follow-up. Jared Harris PA-C SPINE CENTER AT [address] [address] [facility] OPEN NOTE [[id number]] documented in this e ncounter Plan of [...] + + | Performing | Address | City/State[facility] | Phone Number | | Organization | [...]
--- OUTSIDE RECORDS SUMMARY | ~2019-08-04 | XMS | Encounter Summary ---
Demographics + + + | Address | [address] | | | [place] [address] | + + + | Home Phone | | + + + | Preferred Language | Unknown | + + + | Marital Status | Single | + + + | Restorationism Affiliation | Unknown | + + + | Race | White | + + + | Ethnic Group | Not or | + + + Author + + + | Author | [facility] | + + + | Organization | [facility] | + + + | Address | Unknown | + + + | Phone | Unavailable | + + + Support + + +---------+ + | Name | Relationship | Address | Phone | + + +---------+ + | Eleonora Altamirano | ECON | Unknown | | + + +---------+ + Care Team Providers + +------+ + | Care Harness Brusher Name | Role | Phone | + [...] | | [address] Mailcode: | [place], [place] | | | | | [facility] | [address] | | | | | Health and Healing, | [phone] | | | | | [address] | | | | | | Floor [place], [place] | | | | | | [address] | | | | | | [phone] | | | +--------+ + + + [...]
--- OUTSIDE RECORDS SUMMARY | ~2019-08-04 | XMS | Encounter Summary ---
Demographics + + + | Address | [address] | | | [place] [address] | + + + | Home Phone | | + + + | Preferred Language | Unknown | + + + | Marital Status | Single | + + + | Roman Catholic Affiliation | Unknown | + + + | Race | White | + + + | Ethnic Group | Not or | + + + Author + + + | Author | [facility] | + + + | Organization | [facility] | + + + | Address | Unknown | + + + | Phone | Unavailable | + + + Support + + +---------+ + | Name | Relationship | Address | Phone | + + +---------+ + | Eleonora Altamirano | ECON | Unknown | | + + +---------+ + Care Team Providers + +------+ + | Care Deposit Refund Clerk Name | Role | Phone | + +------+ + | Tanika Silvana MAX | PCP | | + +------+ + Encounter Details +--------+ + + + + | Date | Type | Department | Care Team | Description | +--------+ + + + + | 11/29/ | Automotive Parts Advisor | Orthopaedics at | Alexus Pineda | Back pain, | | 2017 | [facility] | H, PA-C | unspecified back | | | | and Healing [address] | | location, | | | | [address] Mailcode: | | unspecified back | | | | [facility] | | pain laterality, | | | | Health and Healing, | | unspecified | | | | | | chronicity (Primary | | | | Floor [place], [place] | | Dx) | | | | [address] | | | | | | [phone] | | | +--------+ + + + [...] + +---------+ + + X-RAY SCOLI SPINE GABRIELA FALK &ISHAAN (11/30/2016 3:17 PM PDT) + + | Specimen | + + | | + + + + + | Narrative | Performed At | + + + | STUDY: SPINE ENTR SRLaquitaY KUSUM AP & LAT HISTORY: Pain. | [facility] | | COMPARISON: 11/30/2016 FINDINGS: There are 5 ora-bzb-[id number] | RADIOLOGY VOICE | | lumbar-type vertebral [...] Pain.COMPARISON: 11/30/2016FINDINGS: There are 5 | | var-oqb-dtixaxt lumbar-type vertebral bodies.There is no significant curvature [...] as now presented. | |There are 5 chz-xpg-qwveffw lumbar-type vertebral bodies. | | | |There [...]
--- OUTSIDE RECORDS SUMMARY | ~2019-08-04 | XMS | Encounter Summary ---
Demographics + + + | Address | [address] | | | [place] [address] | + + + | Home Phone | | + + + | Preferred Language | Unknown | + + + | Marital Status | Single | + + + | Judaism Affiliation | Unknown | + + + | Race | White | + + + | Ethnic Group | Not or | + + + Author + + + | Author | [facility] | + + + | Organization | [facility] | + + + | Address | Unknown | + + + | Phone | Unavailable | + + + Support + + +---------+ + | Name | Relationship | Address | Phone | + + +---------+ + | Eleonora Altamirano | ECON | Unknown | | + + +---------+ + Care Team Providers + +------+ + | Care Slide Fasteners Inspector Name | Role | Phone | + +------+ + | Silvana Sagastume | PCP | | + +------+ + Encounter Details +--------+ + + + + | Date | Type | Department | Care Team | Description | +--------+ + + + + | 11/30/ | Hospital | Radiology/Imaging | Alexus Pineda | | | 2016 | Encounter | Lab at [facility] [address] PA-C | | | | | [place] [place] Mailcode: | | | | | | [facility] | | | | | | Health and Healing, | | | | | | | | | | | | Floor [place], [place] | | | | | | [address] | | | | | | [phone] | | | +--------+ + + + [...] this encounter Results X-RAY SCOLI SPINE ENTR MITCH AP &LAT (11/30/2016 3:17 PM PDT) + + | Specimen | + + | | + + + + + | Narrative | Performed At | + + + | STUDY: SPINE ENTR SRVY ALEXANDRIAY AP & LAT HISTORY: Pain. | [facility] | | COMPARISON: 11/30/2016 FINDINGS: There are 5 cxe-xro-qdcrtdq | RADIOLOGY VOICE | | lumbar-type vertebral [...] Pain.COMPARISON: 11/30/2016FINDINGS: There are 5 | | prw-dhi-qsolxgc lumbar-type vertebral bodies.There is no significant curvature [...] as now presented. | |There are 5 eii-jjm-zhuxlih lumbar-type vertebral bodies. | | | |There [...]
--- OUTSIDE RECORDS SUMMARY | ~2019-08-04 | XMS | Encounter Summary ---
Demographics + + + | Address | [address] | | | [place] [address] | + + + | Home Phone | | + + + | Preferred Language | Unknown | + + + | Marital Status | Single | + + + | Jainism Affiliation | Unknown | + + + | Race | White | + + + | Ethnic Group | Not or | + + + Author + + + | Author | [facility] | + + + | Organization | [facility] | + + + | Address | Unknown | + + + | Phone | Unavailable | + + + Support + + +---------+ + | Name | Relationship | Address | Phone | + + +---------+ + | Eleonora Altamirano | ECON | Unknown | | + + +---------+ + Care Team Providers + +------+ + | Care Machine Edge Bander Name | Role | Phone | + +------+ + | Silvana Sagastume | PCP | | + +------+ + Encounter Details +--------+ + + + + | Date | Type | Department | Care Team | Description | +--------+ + + + + | 11/30/ | Hospital | Radiology/Imaging | Alexus Pineda | | | 2016 | Encounter | Lab at [facility] [address] PA-C | | | | | [address] Mailcode: | | | | | | [facility] | | | | | | Health and Healing, | | | | | | | | | | | | Floor [place], [place] | | | | | | [address] | | | | | | [phone] | | | +--------+ + + + [...] | COMPARISON: 11/30/2016 FINDINGS: There are 5 zdh-yky-abyzmfk | RADIOLOGY VOICE | | lumbar-type vertebral [...] Pain.COMPARISON: 11/30/2016FINDINGS: There are 5 | | ore-rcg-knbfwjx lumbar-type vertebral bodies.There is no significant curvature [...] as now presented. | |There are 5 jzs-tdw-qukikuc lumbar-type vertebral bodies. | | | |There [...]
--- OUTSIDE RECORDS SUMMARY | ~2019-08-04 | XMS | Clinical Summary ---
Demographics + + + | Address | [address] | | | [place] [address] | + + + | Home Phone | | + + + | Preferred Language | Unknown | + + + | Marital Status | Single | + + + | Church Affiliation | Unknown | + + + [...] Team Providers + +------+ + | Care Riprap Placing Supervisor Name | Role | Phone | + +------+ + | Tanika Silvana MAX | PCP | | + +------+ + Source Comments LUPE is fully live on both [facility] and [facility] InPatient.[facility] Allergies No Known Allergies Medications + + [...] | | | + +--------+ +--------+-------+---------+--------+ | PHOSPHORIC ACID OPERATOR MEDICAID | PHOSPHORIC ACID OPERATOR | xxxxxxxx | 03/13/19 | | | [...] al/Jatinder | | 1965 | [phone] | [facility] [address] | | | [place] | | | 7 (Home) | | + +--------+ +--------+ + +
--- OUTSIDE RECORDS SUMMARY | ~2019-08-04 | XMS | Encounter Summary ---
Demographics + + + | Address | [address] | | | [place] [address] | + + + | Home Phone | | + + + | Preferred Language | Unknown | + + + | Marital Status | Single | + + + | Spiritism Affiliation | Unknown | + + + | Race | White | + + + | Ethnic Group | Not or | + + + Author + + + | Author | [facility] | + + + | Organization | [facility] | + + + | Address | Unknown | + + + | Phone | Unavailable | + + + Support + + +---------+ + | Name | Relationship | Address | Phone | + + +---------+ + | Eleonora Altamirano | ECON | Unknown | | + + +---------+ + Care Team Providers + +------+ + | Care Lead Sustainability Specialist Name | Role | Phone | + +------+ + | Silvana Sagastume | PCP | | + +------+ + Encounter Details +--------+ + + + + | Date | Type | Department | Care Team | Description | +--------+ + + + + | 11/30/ | Hospital | Radiology/Imaging | Alexus Pineda | | | 2016 | Encounter | Lab at [facility] [address] PA-C | | | | | [address] Mailcode: | | | | | | [facility] | | | | | | Health and Healing, | | | | | | | | | | | | Floor [place], [place] | | | | | | [address] | | | | | | [phone] | | | +--------+ + + + [...]
--- OUTSIDE RECORDS SUMMARY | ~2019-08-04 | XMS | Encounter Summary ---
Demographics + + + | Address | [address] | | | [place] [address] | + + + | Home Phone | | + + + | Preferred Language | Unknown | + + + | Marital Status | Single | + + + | Yazidi Affiliation | Unknown | + + + | Race | White | + + + | Ethnic Group | Not or | + + + Author + + + | Author | [facility] | + + + | Organization | [facility] | + + + | Address | Unknown | + + + | Phone | Unavailable | + + + Support + + +---------+ + | Name | Relationship | Address | Phone | + + +---------+ + | Eleonora Altamirano | ECON | Unknown | | + + +---------+ + Care Team Providers + +------+ + | Care Drop Shipment Clerk Name | Role | Phone | + +------+ + | Tanika Silvana MAX | PCP | | + +------+ + Encounter Details +--------+ + + + + | Date | Type | Department | Care Team | Description | +--------+ + + + + | 11/29/ | Roller Maker | Orthopaedics at | [facility] | [...] chronicity (Primary | | | | Floor [place], [place] | | Dx) | | | | [address] | | | | | | [phone] | | | +--------+ + + + [...] | COMPARISON: 11/30/2016 FINDINGS: There are 5 ewq-fzq-hzfwxog | RADIOLOGY VOICE | | lumbar-type vertebral [...] Pain.COMPARISON: 11/30/2016FINDINGS: There are 5 | | qlh-eds-hwhkshn lumbar-type vertebral bodies.There is no significant curvature [...] as now presented. | |There are 5 dxf-kqj-kcrniiu lumbar-type vertebral bodies. | | | |There [...]
--- OUTSIDE RECORDS SUMMARY | ~2019-08-04 | XMS | Encounter Summary ---
Demographics + + + | Address | [address] | | | [place] [address] | + + + | Home Phone | | + + + | Preferred Language | Unknown | + + + | Marital Status | Single | + + + | Holiness Affiliation | Unknown | + + + | Race | White | + + + | Ethnic Group | Not or | + + + Author + + + | Author | [facility] | + + + | Organization | [facility] | + + + | Address | Unknown | + + + | Phone | Unavailable | + + + Support + + +---------+ + | Name | Relationship | Address | Phone | + + +---------+ + | Eleonora Altamirano | ECON | Unknown | | + + +---------+ + Care Team Providers + +------+ + | Care Golf Ball Molder Name | Role | Phone | + [...] | | | with | Ave | [place], [place] | | | | | neurogenic | [place], [place] | [address] | | | | | claudication | [address] | Phone: | | | | | Procedures | Phone: | [phone] | | | | | REQUEST TO | [phone] | Fax: | | | | | SURGERY | Fax: | [phone] | | | | | JUNIOR SOFTWARE DEVELOPER | [phone] | | | | | | [place] | | | | | | | LAMINEC/FACE | | | | | | | TECT/FORAMIN | | | | | | | ,LUMBAR CA | | | | | | | [...] | | with | [address] | [place], [place] | | | | | neurogenic | [facility], [place] | [address] | | | | | claudication | [address] | Phone: | | | | | Facet | Phone: | [phone] | | | | | arthropathy | [phone] | Fax: | | | | | Protrusion | Fax: | [phone] | | | | | of lumbar | [phone] | | | | | | intervertebr [...] [facility] [address] | [address] | neurogenic | | | | Ave Mailcode: | [facility], [place] | claudication | | | | [place] [facility] | [address] | (Primary Dx) | | | | and Healing, | [phone] | | | | | [facility] [address] | | | | | | [place], [place] | | | | | | [address] | | | | | | [phone] | | | +--------+---------+ + + + [...] of seeing Mr. Benjamin Altamirano at the [facility] on November 30, 2016. As you know, Mr. Altamirano is a 51-year-old man who presents to me with a chief complaint of low back pain and bilateral lower extremity pain. To summarize his history of present illness, Mr. Altamirano' back pain started in 2001 while w orking at [facility]. After falling off a 4-bryant 5 [...] vasculitis. Social History: Mr. Altamirano lives in [place], [place]. He does not work. He does [...] as 5/5 strength in the bilateral hand work adjustment instructor, biceps, triceps, deltoids, hip flexors, hamstrin gs, quadriceps, tibialis anterior, and gastrocnemius muscles. Sensation is intact to light touch in all 4 extremities. On reflex examination, there is no De La Torre sign and no ankle cl onus. Coordination is intact to yjthwh-esbt-rphemn bilaterally without dysmetria. His regu lar, toe, [...] in his care. I spent 15 minutes cfco-hf-bdbj with the patient. I spent more than 50% of this visit in c oordination of care and counseling, in which we discussed the diagnosis, treatment, imaging studies, and follow-up. Sincerely, MD OSITO YanezT/RENE /[id number] CC: ANTONIO Strickland FNP han, Oscar Ramírez MD - 11/30 3:15 PM PDTDictation #1 [id number] documented in this encou nter Plan of Treatment Not on filedocumented as of this encounter Visit Diagnoses + + | Diagnosis | + + | Lumbar stenosis with neurogenic claudication - Primary Spinal stenosis, lumbar | | region, with neurogenic claudication | + + documented in this encounter
--- OUTSIDE RECORDS SUMMARY | ~2019-08-04 | XMS | Encounter Summary ---
Demographics + + + | Address | [address] | | | [place] [address] | + + + | Home Phone | | + + + | Preferred Language | Unknown | + + + | Marital Status | Single | + + + | Baptist Affiliation | Unknown | + + + | Race | White | + + + | Ethnic Group | Not or | + + + Author + + + | Author | [facility] | + + + | Organization | [facility] | + + + | Address | Unknown | + + + | Phone | Unavailable | + + + Support + + +---------+ + | Name | Relationship | Address | Phone | + + +---------+ + | Eleonora Altamirano | ECON | Unknown | | + + +---------+ + Care Team Providers + +------+ + | Care Director Shopper Marketing Name | Role | Phone | + [...] | | with | [address] | [place], [place] | | | | | neurogenic | [place], [place] | [address] | | | | | claudication | [address] | Phone: | | | | | Facet | Phone: | [phone] | | | | | arthropathy | [phone] | Fax: | | | | | Protrusion | Fax: | [phone] | | | | | of lumbar | [phone] | | | | | | intervertebr [...] | | | | | Lumbar | Jaerd D, | | | | | | stenosis | PA-C [address] | | | | | | with | [address] | | | | | | neurogenic | [place], [place] | | | | | | claudication | [address] | | | | | | Facet | Phone: | | | | | | arthropathy | [phone] | | | | | | Procedures | Fax: | | | | | | ACUPUNCTURE | [phone] | | | | | | - [...] | | | | stenosis | PA-C [address] | | | | | | with | [address] | | | | | | neurogenic | [place], [place] | | | | | | claudication | [address] | | | | | | Facet | Phone: | | | | | | arthropathy | [phone] | | | | | | Procedures | Fax: | | | | | | PHYSICAL | [phone] | | | | | | THERAPY [...] Closed | | Spine | Diagnoses | [place], | Harris, | | | | | Other | MAX Pina | Jared Ramírez PA-C | | | | | intervertebr | [address] | [address] | | | | | al disc | Ave | Ave | | | | | degeneration | [place], [place] | [place], [place] | | | | | , lumbar | [address] | [address] | | | | | region | Phone: | Phone: | | | | | | [phone] | [phone] | | | | | | Fax: | Fax: | | | | | | [phone] | [phone] | +--------+--------+ + + + + Encounter [...] | | | Ave Mailcode: | [facility] [place] | claudication | | | | [facility] | [address] | (Primary Dx); Facet | | | | and Healing, | [phone] | arthropathy; | | | | Building [address] | | Protrusion of lumbar | | | | [place], [place] | | intervertebral disc | | | | [address] | | | | | | [phone] | | | +--------+---------+ + + + [...] documented in this encounter Progress Notes Jared aHrris PA-C - 10/07/2016 10:45 AM PDTFormatting of [...] without relief -He reports numerous injections at [facility] including Epidural steroid injectio ns x 6 with 20% relief in pain x 1 week and multiple lumbar RFAs, the last 2 months with 30% x 2 weeks. The patient has not tried: -Acupuncture Review of Systems: All other systems were reviewed by me personally on a complete review of systems questionna jamil that will be scanned into [employer]ari. Current medication list: Current Outpatient Prescriptions Medication [...] DMII (diabetes mellitus, type 2) ([facility]) GERD (gastroesophageal reflux disease) DAXA (obstructive sleep [...] to date includi ng numerous injections in [place]. MRI outlined above with central disc protrusion at L5-S1 an d multifactorial central stenosis at L3-4 including congential narrowing and facet hypertrop hy. Plan: -Xrays today without dynamic instability -Asked patient to bring current medications to next appointment to ensure they are updated -Will track down EMG/NCS report from [place] 1 year ago and will update EPIC if this adds to diagnosis -Counseled on necessity of nicotine cessation -Counseled on multifactorial nature of axial spine pain, including facet arthropathy -Referral to Acupuncture -Referral to Physical Therapy -Continue management of pain medication by PCP -Referral to [facility] spine surgeon I spent 46 minutes tuip-gu-mefw with the patient. I spent more than 50% of this visit in co ordination of care and counseling in which we discussed diagnosis, treatment, imaging studie s and follow-up. Jared Harris PA-C [facility] AT [address] [address] [facility] OPEN NOTE [56523] documented in this e ncounter Plan of [...] + + | Performing | Address | City[facility]State[facility] | Phone Number | | Organization | [...]
--- OUTSIDE RECORDS SUMMARY | ~2019-08-04 | XMS | Encounter Summary ---
Demographics + + + | Address | [address] | | | [place] [address] | + + + | Home Phone | | + + + | Preferred Language | Unknown | + + + | Marital Status | Single | + + + | Orthodox Affiliation | Unknown | + + + | Race | White | + + + | Ethnic Group | Not or | + + + Author + + + | Author | [facility] | + + + | Organization | [facility] | + + + | Address | Unknown | + + + | Phone | Unavailable | + + + Support + + +---------+ + | Name | Relationship | Address | Phone | + + +---------+ + | Eleonora Altamirano | ECON | Unknown | | + + +---------+ + Care Team Providers + +------+ + | Care Van Owner Operator Name | Role | Phone | [...] | | | with | Ave | [place], [place] | | | | | neurogenic | [place], [place] | [address] | | | | | claudication | [address] | Phone: | | | | | Procedures | Phone: | [phone] | | | | | REQUEST TO | [phone] | Fax: | | | | | SURGERY | Fax: | [phone] | | | | | HOUSEKEEPING SUPERVISOR | [phone] | | | | | | [place] | | | | | | | LAMINEC/FACE | | | | | | | TECT/FORAMIN | | | | | | | ,LUMBAR [place] | | | | | | | [...] | | with | [address] | [place], [place] | | | | | neurogenic | [facility], [place] | [address] | | | | | claudication | [address] | Phone: | | | | | Facet | Phone: | [phone] | | | | | arthropathy | [phone] | Fax: | | | | | Protrusion | Fax: | [phone] | | | | | of lumbar | [phone] | | | | | | intervertebr [...] | | | | Ave Mailcode: | [facility], [place] | claudication | | | | [place] for [facility] | [address] | (Primary Dx) | | | | and Healing, | [phone] | | | | | [facility] [address] | | | | | | [place], [place] | | | | | | [address] | | | | | | [phone] | | | +--------+---------+ + + + [...] of seeing Mr. Benjamin Altamirano at [facility] on November [facility], 2016. As you know, Mr. Altamirano is a 51-year-old man who presents to me with a chief complaint of low back pain and bilateral lower extremity pain. To summarize his history of present illness, Mr. Altamirano' back pain started in 2001 while w orking at [facility]. After falling off a 4-bryant 5 [...] vasculitis. Social History: Mr. Altamirano lives in [place], [place]. He does not work. He does [...] as 5/5 strength in the bilateral hand hog grader, biceps, triceps, deltoids, hip flexors, hamstrin gs, quadriceps, tibialis anterior, and gastrocnemius muscles. Sensation is intact to light touch in all 4 extremities. On reflex examination, there is no De La Torre sign and no ankle cl onus. Coordination is intact to yctidi-cztm-brmxff bilaterally without dysmetria. His regu lar, toe, [...] in his care. I spent 15 minutes dusv-iq-jftf with the patient. I spent more than 50% of this visit in c oordination of care and counseling, in which we discussed the diagnosis, treatment, imaging studies, and follow-up. Sincerely, MD OSITO YanezT/RENE /[id number] CC: ANTONIO Strickland FNP han, Oscar Ramírez MD - 11/30 3:15 PM PDTDictation #1 [id number] documented in this encou nter Plan of Treatment Not on filedocumented as of this encounter Visit Diagnoses + + | Diagnosis | + + | Lumbar stenosis with neurogenic claudication - Primary Spinal stenosis, lumbar | | region, with neurogenic claudication | + + documented in this encounter
[2019-08-04] MEDS ORDERED: JARDIANCE25 MG PO (14:05)
[2019-08-04] MEDS ORDERED: NORCO 5-325 TA1 EACH PO (14:54)
== END 2019-08-04 15:02 | disposition home or self-care (01) ==
LOC: ED 13:54
DX: S46.911A Strain of unspecified muscle, fascia and tendon at shoulder and upper arm level, right arm, initial encounter (principal); E11.40 Type 2 diabetes mellitus with diabetic neuropathy, unspecified; Z79.899 Other long term (current) 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; X58.XXXA Exposure to other specified factors, initial encounter
CPT/HCPCS: 73030; 99283-25

== ENCOUNTER 2019-08-21 13:36 | Emergency (ER) | payer MEDICAID ==
[~2019-08-21] VITALS: Ht 185.4 cm; Wt 99.8 kg
[~2019-08-21 13:36] MED LIST changes: +JARDIANCE25 MG PO; +NORCO 5-325 TA1 EACH PO
--- OUTSIDE RECORDS SUMMARY | 2019-08-21 13:40 | XMS ---
PreManage Notification: BRIANNA CARRION Security Web Pressman Events No recent Security Events currently on file CRITERIA MET - [facility] - 2 Visits in 30 Days CARE PROVIDERS AZEB KAPLAN Nurse Practitioner: Family Current PHONE: Unknown Jeanne has no Care Guidelines for this patient. E.Delfina VISIT COUNT (12 MO.) 4 [facility] TOTAL 4 NOTE: Visits indicate total known visits. ED/UCC VISIT TRACKING (12 MO.) 08/21/2019 13:37 [facility] [place] TYPE: Emergency COMPLAINT: - LT HEADED, SOB, DIZZY 08/04/2019 13:55 [facility] TYPE: Emergency COMPLAINT: - SHOULDER PAIN, NON INJURY DIAGNOSES: - Pain in right shoulder - Other senior living (current) 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 - Exposure to other specified factors, initial encounter - Type 2 diabetes mellitus with diabetic neuropathy, unspecifie - Strain of unspecified muscle, fascia and tendon at shoulder a 01/20/2019 19:40 [facility] [place] TYPE: Emergency COMPLAINT: - OD DIAGNOSES: - Poisoning by other antiepileptic and sedative-hypnotic drugs, - Poisoning by other antiepileptic and sedative-hypnotic drugs, - Sleep apnea, unspecified - Other intermission coordinator (current) 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 - Type 2 diabetes mellitus with diabetic neuropathy, unspecifie - intermission coordinator (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 insulin 10/24/2018 12:[address] [facility] [place] TYPE: Emergency COMPLAINT: - FLANK PAIN DIAGNOSES: - Type 2 diabetes mellitus with diabetic neuropathy, unspecifie - Other senior living (current) 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 - Dorsalgia, unspecified - Unspecified abdominal pain INPATIENT VISIT TRACKING (12 MO.) No inpatient visits to display in this time frame [email or web address]
[2019-08-21] MEDS ORDERED: ELIQUIS5 MG PO (16:07)
--- NOTE | 2019-08-22 11:08 | EKG ---
[facility] [address] [facility] [place], [place] [address] Signed Normal sinus rhythm Left axis deviation Abnormal ECG When compared with ECG of 20-JAN-2019 22:12, No significant change was found Confirmed by MORIAH NOBLE MD ([id number]) on 08/22/2019 11:08:17 AM Electronically Signed By: MORIAH NOBLE MD 08/22/19 1108 PATIENT NAME: MURALIBRIANNA Electrocardiogram DATE OF : 69 PHYSICIAN: MORIAH NOBLE MD REPORT #: [id number] REPORT IS CONFIDENTIAL AND NOT TO BE RELEASED WITHOUT AUTHORIZATION
== END 2019-08-21 16:37 | disposition home or self-care (01) ==
LOC: ED 13:36
DX: I26.99 Other pulmonary embolism without acute cor pulmonale (principal); E11.40 Type 2 diabetes mellitus with diabetic neuropathy, unspecified; G47.30 Sleep apnea, unspecified; Z79.899 Other long term (current) 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
CPT/HCPCS: 71045; 71260; 80053; 83880; 84484; 85025; 85379; 93005; 93010; 99285-25; C9803; J2060; Q9967; U0002

== ENCOUNTER 2019-09-02 08:29 | Emergency (ER) | payer MEDICAID ==
[~2019-09-02] VITALS: Ht 185.4 cm; Wt 99.8 kg
[~2019-09-02 08:29] MED LIST changes: +ELIQUIS5 MG PO
--- OUTSIDE RECORDS SUMMARY | 2019-09-02 08:36 | XMS ---
PreManage Notification: BRIANNA CARRION Security Coal Gasification Technician Events No recent Security Events currently on file CRITERIA MET - [facility] - 2 Visits in 30 Days CARE PROVIDERS RIZWAN LOPEZ Physician Dry House Tender 08/28/2019-Current PHONE: [phone] AZEB KAPLAN Nurse Practitioner: Family Current PHONE: Unknown Jeanne has no Care Guidelines for this patient. Soren VISIT COUNT (12 MO.) [address] [place] [address] TOTAL 6 NOTE: Visits indicate total known visits. ED/UCC VISIT TRACKING (12 MO.) 09/02/2019 08:30 [facility] [place] TYPE: Emergency COMPLAINT: - SOB 08/27/2019 10:32 [facility] [place] TYPE: Emergency COMPLAINT: - DIZZINESS DIAGNOSES: - Hemorrhage of anus and rectum - Other joint terminal attack controller (current) 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 - Type 2 diabetes mellitus with diabetic neuropathy, unspecifie - Gastrointestinal hemorrhage, unspecified 08/21/2019 13:37 [facility] [place] TYPE: Emergency COMPLAINT: - LT HEADED, SOB, DIZZY DIAGNOSES: - Other joint terminal attack controller (current) 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 - Type 2 diabetes mellitus with diabetic neuropathy, unspecifie - Shortness of breath - Other pulmonary embolism without acute cor pulmonale - Sleep apnea, unspecified 08/04/2019 13:55 [facility] [place] TYPE: Emergency COMPLAINT: - SHOULDER PAIN, NON INJURY DIAGNOSES: - Pain in right shoulder - Other halfway (current) 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 - Exposure to other [...] drugs, - Sleep apnea, unspecified - Other joint terminal attack controller (current) 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 - Type 2 diabetes mellitus with diabetic neuropathy, unspecifie - snf (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 insulin 10/24/2018 12:[address] [facility] [address] [facility] [place] TYPE: Emergency COMPLAINT: - FLANK PAIN DIAGNOSES: - Type 2 diabetes mellitus with diabetic neuropathy, unspecifie - Other halfway (current) 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 - Dorsalgia, unspecified - Unspecified abdominal pain INPATIENT VISIT TRACKING (12 MO.) No inpatient visits to display in this time frame [email or web address]
--- NOTE | 2019-09-02 16:01 | EKG ---
[facility] [address] [facility] [facility] [place], [place] [address] Signed Sinus tachycardia Left axis deviation Incomplete right bundle branch block Abnormal ECG When compared with ECG of 21-AUG-2019 13:52, No significant change was found Confirmed by MICKY CISNEROS MD ([id number]) on 09/02/2019 4:01:06 PM Electronically Signed By: MICKY CISNEROS MD 09/02/19 1601 PATIENT NAME: BRIANNA CARRION Electrocardiogram DATE OF : 69 PHYSICIAN: MICKY CISNEROS MD REPORT #: [id number] REPORT IS CONFIDENTIAL AND NOT TO BE RELEASED WITHOUT AUTHORIZATION
== END 2019-09-02 10:46 | disposition home or self-care (01) ==
LOC: ED 08:29
DX: R06.00 Dyspnea, unspecified (principal); D64.9 Anemia, unspecified; I26.99 Other pulmonary embolism without acute cor pulmonale; E11.40 Type 2 diabetes mellitus with diabetic neuropathy, unspecified; G47.30 Sleep apnea, unspecified; Z79.899 Other long term (current) 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; Z79.01 Long term (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 anticoagulants
CPT/HCPCS: 71046; 80053; 83880; 84484; 85025; 93005; 93010; 96374; 99285-25; C9803; J2405; U0002

== ENCOUNTER 2019-10-03 14:30 | Emergency (ER) | payer MEDICAID ==
[~2019-10-03] VITALS: Ht 185.4 cm; Wt 99.8 kg
--- OUTSIDE RECORDS SUMMARY | ~2019-10-03 | XMS | Encounter Summary ---
Demographics + + + | Address | [address] | | | [place] [address] | + + + | Home Phone | | + + + | Preferred Language | Unknown | + + + | Marital Status | Single | + + + | Voodoo Affiliation | Unknown | + + + | Race | White | + + + | Ethnic Group | Not or | + + + Author + + + | Author | [facility] | + + + | Organization | [facility] | + + + | Address | Unknown | + + + | Phone | Unavailable | + + + Support + + +---------+ + | Name | Relationship | Address | Phone | + + +---------+ + | Eleonora Altamirano | ECON | Unknown | | + + +---------+ + Care Team Providers + +------+ + | Care Fugitive Investigator Name | Role | Phone | + +------+ + | Silvana Sagastume | PCP | | + +------+ + Encounter Details +--------+ + + + + | Date | Type | Department | Care Team | Description | +--------+ + + + + | 11/30/ | Hospital | Radiology/Imaging | [facility]ined[facility] | | | 2016 | Encounter | Lab at [facility] [address] PA-C | | | | | [address] [facility] | | | | | | Health and Healing, | | | | | | [facility] | | | | | | Floor [place], [place] | | | | | | [address] | | | | | | [phone] | | | +--------+ + + + [...] + | X-RAY SPINE | Routin | 11/30/2016 | Back pain, | Results for this | | LUMBOSACRAL 2 VIEWS | e | 3:18 PM | unspecified back | procedure are in the | | | | PDT | location, | results section. | | | | | unspecified back | | | | | | pain laterality, | | | | | | unspecified | | | | | | chronicity | | + +--------+ + + + documented in this encounter Results X-RAY SPINE LUMBOSACRAL 2 [...] back pain laterality, unspecified | | chronicity | + + documented in this encounter"
--- OUTSIDE RECORDS SUMMARY | ~2019-10-03 | XMS | Encounter Summary ---
Demographics + + + | Address | [address] | | | [place] [address] | + + + | Home Phone | | + + + | Preferred Language | Unknown | + + + | Marital Status | Single | + + + | Bahai Affiliation | Unknown | + + + | Race | White | + + + | Ethnic Group | Not or | + + + Author + + + | Author | [facility] | + + + | Organization | [facility] | + + + | Address | Unknown | + + + | Phone | Unavailable | + + + Support + + +---------+ + | Name | Relationship | Address | Phone | + + +---------+ + | Eleonora Altamirano | ECON | Unknown | | + + +---------+ + Care Team Providers + +------+ + | Care Rv Service Technician Name | Role | Phone | + +------+ + | Silvana Sagastume | PCP | | + +------+ + Encounter Details +--------+ + + + + | Date | Type | Department | Care Team | Description | +--------+ + + + + | 11/30/ | Hospital | Radiology/Imaging | Alexus Pineda | | | 2016 | Encounter | Lab at [facility] [address]-C | | | | | [address] [facility] | | | | | | [facility], | | | | | | [facility] | | | | | | Floor [place], [place] | | | | | | [address] | | | | | | [phone] | | | +--------+ + + + [...] + +--------+ + + + | X-RAY SCOLI SPINE | Routin | 11/30/2016 | Back pain, | Results for this | | ENTR MITCH AP &LAT | e | 3:17 PM | unspecified back | procedure are in the | | | | PDT | location, | results section. | | | | | unspecified back | | | | | | pain laterality, | | | | | | unspecified | | | | | | chronicity | | + +--------+ + + + documented in this encounter Results X-RAY SCOLI SPINE ENTR VY AP &LAT (11/30/2016 3:17 PM PDT) + + | Specimen | + + | | + + + + + | Narrative | Performed At | + + + | STUDY: SPINE ENTR SRVY STDY AP & LAT HISTORY: Pain. | [facility] | | COMPARISON: 11/30/2016 FINDINGS: There are 5 [id number] | RADIOLOGY VOICE | | lumbar-type vertebral [...] Pain.COMPARISON: 11/30/2016FINDINGS: There are 5 | | gcq-doy-sfwwgyj lumbar-type vertebral bodies.There is no significant curvature [...] as now presented. | |There are 5 shl-seu-ycwxroo lumbar-type vertebral bodies. | | | |There [...] he report as now presented. | + ---+ [...]
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
--- OUTSIDE RECORDS SUMMARY | ~2019-10-03 | XMS | Clinical Summary ---
Demographics + + + | Address | [address] | | | [place] [address] | + + + | Home Phone | | + + + | Preferred Language | Unknown | + + + | Marital Status | Unknown | + + + | Yazdanism Affiliation | Unknown | + + + | Race | Unknown | + + + | Ethnic Group | Unknown | + + + Author + + + | Author | [facility] | | | and Sanchezana | + + + | Organization | [facility] | | | and [...] Team Providers + +------+ + | Care Tester [employer] Name | Role | Phone | + +------+ + | Azeb Sagastume | PCP | | + +------+ [...] + +---------+------+------+-------+ Active Problems Not on file Encounters +--------+ + + + + | Date | Type | Specialty | Care Team | Description | +--------+ + + + + | 09/03/ | Emergency | Emergency Medicine | Audrey, | Atypical chest pain | | 2020 | | | Austin York MD | (Primary Dx); | | | | | | Anxiety; Pulmonary | | | | | | embolism without | | | | | | acute cor pulmonale, | | | | | | unspecified | | | | | | chronicity, | | | | | | unspecified | | | | | | pulmonary embolism | | | | | | type (HCC) | +--------+ + + + + from Last 3 Months Social History + +-------+ +--------+------+ | Tobacco [...] + + + | Medication | | | | | Management | 7 | | | + + [...] | | + + + + + Procedures + +--------+ + + + | Procedure Name | Priori | Date/Time | Associated Diagnosis | Comments | | | ty | | | | + +--------+ + + + | ECG 12 LEAD | STAT | 09/04/2019 | | Results for this | | | | 10:46 AM | | procedure are in the | | | | PDT | | results section. | + +--------+ + + + | B TYPE NATRIURETIC | STAT | 09/04/2019 | | Results for this | | PEPTIDE | | 10:36 AM | | procedure are in the | | | | PDT | | results section. | + +--------+ + + + | PROTIME INR | STAT | 09/04/2019 | | Results for this | | | | 10:35 AM | | procedure are in the | | | | PDT | | results section. | + +--------+ + + + | TROPONIN I | STAT | 09/04/2019 | | Results for this | | | | 10:35 AM | | procedure are in the | | | | PDT | | results section. | + +--------+ + + + | COMPREHENSIVE | STAT | 09/04/2019 | | Results for this | | METABOLIC PANEL | | 10:35 AM | | procedure are in the | | | | PDT | | results section. | + +--------+ + + + | CBC WITH | STAT | 09/04/2019 | | Results for this | | DIFFERENTIAL | | 10:35 AM | | procedure are in the | | | | PDT | | results section. | + +--------+ + + + | ED INFORMATION | Routin | 09/04/2019 | | | | EXCHANGE | e | 10:15 AM | | | | | | PDT | | | + +--------+ + + + +---+--------+ | | | | | Proced | | | ure | | | Note - | | | Joshua, | | | Lab In | | | | | | Hlseve | | | n - | | | 09/03/ | | | 2019 | | | 10:16 | | | AM PDT | | | | | | Format | | | ting | | | of | | | this | | | note | | | might | | | be | | | differ | | | ent | | | from | | | the | | | origin | | | al.COL | | | LECTIV | | | E?NOTI | | | FICATI | | | ON?06/ | | | 24/202 | | | 0 | | | 10:14? | | | DOCKIN | | | S, | | | EDWARD | | | ?MRN: | | | [id number] | | | [id number] | | | riteri | | | a Met | | | 4 | | | visits | | | in | | | 60Secu | | | rity | | | and | | | Safety | | | No | | | recent | | | | | | Securi | | | ty | | | Events | | | | | | curren | | | tly on | | | | | | fileED | | | Care | | | Guidel | | | inesTh | | | ere | | | are | | | curren | | | tly no | | | ED | | | Care | | | Guidel | | | nahid | | | for | | | this | | | patien | | | t. | | | Please | | | check | | | your | | | facili | | | ty's | | | medica | | | l | | | record | | | s | | | system | | | .Flags | | | | | | [place] | | | ED | | | Dispar | | | ity | | | Measur | | | e - | | | [place] | | | has | | | develo | | | ped a | | | flag | | | (Orego | | | n ED | | | Dispar | | | ity | | | Measur | | | e) to | | | help | | | suppor | | | t | | | Medica | | | id | | | member | | | s with | | | | | | mental | | | | | | illnes | | | s. | | | [place] | | | | | | Health | | | | | | Author | | | ity | | | uses | | | claims | | | data | | | with a | | | | | | 36-mon | | | th | | | uri | | | g look | | | back | | | period | | | to | | | identi | | | fy | | | member | | | s who | | | have | | | had | | | two or | | | more | | | diagno | | | ses of | | | | | | mental | | | | | | illnes | | | s | | | (does | | | not | | | need | | | to be | | | primar | | | y) in | | | any | | | settin | | | g | | | (e.g. | | | ED, | | | Inpati | | | ent, | | | primar | | | y | | | care). | | | | | | Flagge | | | d | | | member | | | s are | | | includ | | | ed in | | | the ED | | | | | | Dispar | | | ity | | | Measur | | | e | | | denomi | | | nator | | | popula | | | tion. | | | Flags | | | are | | | update | | | d | | | weekly | | | . / | | | Attrib | | | uted | | | By: | | | [place] | | | | | | Health | | | | | | Author | | | ity | | | (OHA) | | | / | | | Attrib | | | uted | | | On: | | | 03/11/ | | | 2020 | | | Prescr | | | iption | | | Drug | | | Report | | | (12 | | | Mo.)PD | | | MP | | | query | | | found | | | no | | | report | | | .E.D. | | | Visit | | | Count | | | (12 | | | mo.)Fa | | | cility | | | | | | Visits | | | Low | | | Acuity | | | | | | Provid | | | ence | | | [facility] | | | [facility] | [facility] | | | l | | | Center | | | 1 0 | | | [facility] [place] | | | y | | | Hospit | | | al 6 0 | | | Total | | | 7 0 | | | Note: | | | Visits | | | | | | indica | | | te | | | total | | | known | | | visits | | | . | | | Medica | | | id Low | | | | | | Acuity | | | Dx | | | are | | | the | | | number | | | of | | | primar | | | y | | | diagno | | | ses on | | | the | | | Medica | | | id's | | | Low | | | Acuity | | | dx | | | list. | | | | | | Recent | | | | | | Emerge | | | ncy | | | Depart | | | ment | | | Visit | | | [facility] | | | yDate | | | Facili | | | ty | | | City | | | State | | | Type | | | Diagno | | | ses or | | | Chief | | | | | | Compla | | | int | | | [facility] | | | 24, | | | 2020 | | | Provid | | | ence | | | [facility] | [facility] | [place] | | | [place] | | | Emerge | | | ncy | | | Chest | | | pain | | | [place] | | | 22, | | | 2020 | | | [facility] | [place] | | | [facility] | | | [place] | | | [place] | | | Emerge | | | ncy | | | Chief | | | Compla | | | int: | | | SOB | | | [facility] | | | 16, | | | 2020 | | | [facility] [place] | | | [facility] | | | [place] 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 [place] | | | [facility] | | | [place] 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 [place] | | | [facility] | | | [place] | | | [place] | | | Emerge | | | ncy | | | Pain | | | in | | | right | | | should | | | er | | | Other | | | long | | | term | | | (curre | | | nt) | | | drug | | | therap | | | y | | | Exposu | | | re to | | | other | | | specif | | | ied | | | factor | | | s, | | | initia | | | l | | | encoun | | | ter | | | Type | | | 2 | | | diabet | | | es | | | mellit | | | us | | | with | | | diabet | | | ic | | | neurop | | | athy, | | | unspec | | | ifie | | | | | | Strain | | | of | | | unspec | | | ified | | | muscle | | | , | | | fascia | | | and | | | tendon | | | at | | | should | | | er a | | | Nov | | | 10, | | | 2019 | | | [facility] [place] | | | [facility] | | | [place] 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 [place] | | | [facility] | | | [place] | | | [place] | | | Emerge | | | ncy | | | Type | | | 2 | | | diabet | | | es | | | mellit | | | us | | | with | | | diabet | | | ic | | | neurop | | | athy, | | | unspec | | | ifie | | | | | | Other | | | long | | | term | | | (curre | | | nt) | | | drug | | | therap | | | y | | | Dorsal | | | franco, | | | unspec | | | ified | | | | | | Unspec | | | ified | | | abdomi | | | nal | | | pain | | | Recent | | | | | | Inpati | | | ent | | | Visit | | | [facility] | | | yNo | | | record | | | ed | | | inpati | | | ent | | | visits | | | . Care | | | | | | TeamPr | | | ovider | | | | | | Specia | | | lty | | | Phone | | | Fax | | | Servic | | | e | | | Dates | | | BROWN, | | | | | | PATRICIA | | | LINE , | | | PA | | | Physic | | | binh | | | Assist | | | ant | | | (541) | | | [phone] | | | 00 | | | ([phone]) | | | [phone] | | | [address] | | | 17, | | | 2020 - | | | | | | Curren | | | t | | | FIFE, | | | AZEB | | | , POLICY ANALYST | | | Nurse | | | Practi | | | tioner | | | : | | | Family | | | | | | Curren | | | t | | | Collec | | | tive | | | Portal | | | This | | | patien | | | t has | | | regist | | | ered | | | at the | | | | | | Provid | | | ence | | | [facility] | | | [facility] | [facility] | | | l | | | Center | | | | | | Emerge | | | ncy | | | Depart | | | ment | | | For | | | more | | | inform | | | ation | | | visit: | | | | | | https: | | | //prov | | | .colle | | | ctivem | | | edical | | | .com/n | | | otify/ | | | [id number] | | | [phone] | | | [phone] | | | [id number] | | | [id number] | | | [id number] | | | | | | PLEASE | | | NOTE: | | | 1. | | | Any | | | care | | | recomm | | | endati | | | ons | | | and | | | other | | | clinic | | | al | | | inform | | | ation | | | are | | | provid | | | ed as | | | guidel | | | nahid | | | or for | | | | | | histor | | | ical | | | purpos | | | es | | | only, | | | and | | | provid | | | ers | | | should | | | | | | exerci | | | se | | | their | | | own | | | clinic | | | al | | | judgme | | | nt | | | when | | | provid | | | ing | | | care. | | | 2. | | | You | | | may | | | only | | | use | | | this | | | inform | | | ation | | | for | | | purpos | | | es of | | | treatm | | | ent, | | | paymen | | | t or | | | health | | | care | | | operat | | | ions | | | activi | | | ties, | | | and | | | subjec | | | t to | | | the | | | limita | | | tions | | | of | | | applic | | | able | | | Collec | | | tive | | | Polici | | | es. | | | 3. | | | You | | | should | | | | | | consul | | | t | | | direct | | | ly | | | with | | | the | | | organi | | | zation | | | that | | | provid | | | ed a | | | care | | | guidel | | | ine or | | | other | | | | | | clinic | | | al | | | histor | | | y with | | | any | | | questi | | | ons | | | about | | | additi | | | onal | | | inform | | | ation | | | or | | | accura | | | cy or | | | comple | | | teness | | | of | | | inform | | | ation | | | provid | | | ed.? | | | 2020 | | | Colle[facility] | | | tive | | | Medica | | | l | | | Techn[employer] | | | logies | | | , Inc[employer] | | | - | | | [email or web address] | | | llecti | | | vemedi | | | [email or web address] | | | m | +---+--------+ from Last 3 Months Results ECG 12 lead (09/04/2019 10:46 AM PDT) + + + + + + | Component | Value | Ref Range | Performed | Pathologist | | | | | At | Signature | + + + + + + | VENTRICULAR | 95 | BPM | [facility] | | | RATE EKG | | | | | + + + + + + | ATRIAL RATE | 95 | BPM | [facility] | | + + + + + + | P-R | 152 | ms | [facility] | | | INTERVAL | | | | | + + + + + + | QRS | 96 | ms | [facility] | | | DURATION | | | | | + + + + + + | Q-T | 350 | ms | [facility] | | | INTERVAL | | | | | + + + + + + | Q-T | 439 | ms | [facility] | | | INTERVAL | | | | | | (CORRECTED) | | | | | + + + + + + | P WAVE AXIS | 55 | degrees | [facility] | | + + + + + + | QRS AXIS | -36 | degrees | [facility] | | + + + + + + | T AXIS | 53 | degrees | [facility] | | + + + + + + | INTERPRETAT | Normal sinus rhythmLeft | | [facility] | | | ION TEXT | axis deviationNo | | | | | | previous ECGs | | | | | | availableConfirmed by | | | | | | CHRISTIAN BARAJAS MD ([id number]) | | | | | | on 09/05/2019 6:05:30 AM | | | | + + + + + + + + | Specimen | + + | | + + + + + | Narrative | Performed At | + + + | | | + + + + +---------+ + + | Performing | Address | City/State/Zipcode | Phone Number | | Organization | | | | + +---------+ + + | [facility] | | | | + +---------+ + + B Type Natriuretic Peptide (09/04/2019 10:36 AM PDT) + + + + + + | Component | Value | Ref Range | Performed | Pathologist | | | | | At | Signature | + + + + + + | BNP | 7Comment: New method in | <100 pg/mL | [facility] | | | | use as of May 09, | | [facility] | | | | 2018. Check reference | | MEDICAL | | | | range for changes.Some | | CENTER - | | | | analytes show | | LABORATORY | | | | significant variation | | | | | | from the previous | | | | | | method.It may be | | | | | | necessary to set a new | | | | | | baseline for this | | | | | | analyte. | | | | + + + + + + + + | Specimen | + + | Blood | + + + + + + + | Performing | Address | City/State/Zipcode | Phone Number | | Organization | | | | + + + + + | [facility] | [address] | [place] | [phone] | | [facility] | | [address] | | | - LABORATORY | | | | + + + + + Troponin I (09/04/2019 10:35 AM PDT) + + + + + + | Component | Value | Ref Range | Performed | Pathologist | | | | | At | Signature | + + + + + + | Troponin I | <0.01Comment: | <0.06 ng/mL | [facility] | | | | Comment:Reference | | [facility] | | | | Ranges: 0.00-0.06 = | | MEDICAL | | | | NORMAL >0.06 = | | CENTER - | | | | SUSPICIOUS FOR | | LABORATORY | | | | MYOCARDIAL DAMAGE NOTE: | | | | | | Values greater than | | | | | | 0.78 ng/mL have been | | | | | | shown to be strongly | | | | | | associated with acute | | | | | | myocardial infarction. | | | | | | The [employer] | | | | | | Cardiology (ACC) | | | | | | recommends a decision | | | | | | limit of 0.06 ng/mL for | | | | | | this assay. Results | | | | | | greater than 0.06 can | | | | | | reflect a pre-infarct | | | | | | acute coronary syndrome, | | | | | | but can also reflect | | | | | | myocardial necrosis or | | | | | | injury that is not due | | | | | | to coronary artery | | | | | | disease. Some of these | | | | | | causes are sepsis, | | | | | | hypocolemia, atrial | | | | | | fibrillation, heart | | | | | | failure, pulmonary | | | | | | embolism, myocarditis, | | | | | | myocardial contusion, | | | | | | and renal failure. The | | | | | | diagnosis of myocardial | | | | | | infarction should be | | | | | | based on a combination | | | | | | of the patient's | | | | | | clinical presentation | | | | | | and the clinical | | | | | | laboratory test results | | | | | | (especially serial | | | | | | troponin levels). | | | | + + + + + + + + | Specimen | + + | Blood | + + + + + + + | Performing | Address | City/State/Zipcode | Phone Number | | Organization | | | | + + + + + | [facility] | [address] | [place] | [phone] | | [facility] | | [address] | | | - LABORATORY | | | | + + + + + Protime INR (09/04/2019 10:35 AM PDT) + + + + + + | Component | Value | Ref Range | Performed | Pathologist | | | | | At | Signature | + + + + + + | Prothrombin | 16.0 (H) | 11.3 - 13.9 | [facility] | | | Time | | seconds | [facility] | | | | | | MEDICAL | | | | | | CENTER - | | | | | | LABORATORY | | + + + + + + | INR | 1.2 (H)Comment: Usual | 0.9 - 1.1 | [facility] | | | | Oral Anticoagulation | | [facility] | | | | Range: 2.0 - | | MEDICAL | | | | 3.0High Level Oral | | CENTER - | | | | Anticoagulation Range: | | LABORATORY | | | | 2.5 - 3.5 | | | | + + + + + + + + | Specimen | + + | Blood | + + + + + + + | Performing | Address | City/State/Zipcode | Phone Number | | Organization | | | | + + + + + | [facility] | [address] | [place] | [phone] | | [facility] | | [address] | | | - LABORATORY | | | | + + + + + CBC with Differential (09/04/2019 10:35 AM PDT) + + + + + + | Component | Value | Ref Range | Performed | Pathologist | | | | | At | Signature | + + + + + + | White Blood | 4.4 | 4.0 - 11.0 K/uL | [facility] | | | Cells | | | . [facility] | | | | | | MEDICAL | | | | | | CENTER - | | | | | | LABORATORY | | + + + + + + | Red Blood | 4.57 | 4.30 - 5.70 | [facility] | | | Cells | | M/uL | [facility] | | | | | | MEDICAL | | | | | | CENTER - | | | | | | LABORATORY | | + + + + + + | Hemoglobin | 12.0 (L) | 13.5 - 18.0 | [facility] | | | | | g/dL | [facility] | | | | | | MEDICAL | | | | | | CENTER - | | | | | | LABORATORY | | + + + + + + | Hematocrit | 36.6 (L) | 40.0 - 51.0 % | [facility] | | | | | | [facility] | | | | | | MEDICAL | | | | | | CENTER - | | | | | | LABORATORY | | + + + + + + | MCV | 80.1 (L) | 83.0 - 101.0 fL | [facility] | | | | | | [facility] | | | | | | MEDICAL | | | | | | CENTER - | | | | | | LABORATORY | | + + + + + + | MCH | 26.3 (L) | 28.0 - 35.0 pg | [facility] | | | | | | [facility] | | | | | | MEDICAL | | | | | | CENTER - | | | | | | LABORATORY | | + + + + + + | MCHC | 32.8 | 32.0 - 36.0 | [facility] | | | | | g/dL | [facility] | | | | | | MEDICAL | | | | | | CENTER - | | | | | | LABORATORY | | + + + + + + | RDW-CV | 16.1 (H) | <15.0 % | [facility] | | | | | | [facility] | | | | | | MEDICAL | | | | | | CENTER - | | | | | | LABORATORY | | + + + + + + | RDW-SD | 46.1 | 35.1 - 46.3 fL | [facility] | | | | | | [facility] | | | | | | MEDICAL | | | | | | CENTER - | | | | | | LABORATORY | | + + + + + + | Platelet | 214 | 140 - 440 K/uL | [facility] | | | Count | | | [facility] | | | | | | MEDICAL | | | | | | CENTER - | | | | | | LABORATORY | | + + + + + + | MPV | 10.3 | 6.5 - 12.4 fL | [facility] | | | | | | [facility] | | | | | | MEDICAL | | | | | | CENTER - | | | | | | LABORATORY | | + + + + + + | % | 56.5 | 45.0 - 82.0 % | [facility] | | | Neutrophils | | | [facility] | | | | | | MEDICAL | | | | | | CENTER - | | | | | | LABORATORY | | + + + + + + | % | 29.1 | 20.0 - 45.0 % | [facility] | | | Lymphocytes | | | [facility] | | | | | | MEDICAL | | | | | | CENTER - | | | | | | LABORATORY | | + + + + + + | % Monocytes | 12.1 (H) | 4.0 - 12.0 % | [facility] | | | | | | [facility] | | | | | | MEDICAL | | | | | | CENTER - | | | | | | LABORATORY | | + + + + + + | % | 0.7 | 0.0 - 5.0 % | [facility] | | | Eosinophils | | | [facility] | | | | | | MEDICAL | | | | | | CENTER - | | | | | | LABORATORY | | + + + + + + | % Basophils | 1.4 (H) | 0.0 - 1.0 % | [facility] | | | | | | [facility] | | | | | | MEDICAL | | | | | | CENTER - | | | | | | LABORATORY | | + + + + + + | % Immature | 0.2 | 0.0 - 0.4 % | [facility] | | | Granulocyte | | | [facility] | | | s | | | MEDICAL | | | | | | CENTER - | | | | | | LABORATORY | | + + + + + + | Absolute | 2.47 | 1.80 - 8.50 | [facility] | | | Neutrophils | | K/uL | [facility] | | | | | | MEDICAL | | | | | | CENTER - | | | | | | LABORATORY | | + + + + + + | Absolute | 1.27 | 0.60 - 3.20 | [facility] | | | Lymphocytes | | K/uL | [facility] | | | | | | MEDICAL | | | | | | CENTER - | | | | | | LABORATORY | | + + + + + + | Absolute | 0.53 | 0.00 - 1.00 | [facility] | | | Monocytes | | K/uL | [facility] | | | | | | MEDICAL | | | | | | CENTER - | | | | | | LABORATORY | | + + + + + + | Absolute | 0.03 | 0.00 - 0.40 | [facility] | | | Eosinophils | | K/uL | [facility] | | | | | | MEDICAL | | | | | | CENTER - | | | | | | LABORATORY | | + + + + + + | Absolute | 0.06 | 0.00 - 0.10 | [facility] | | | Basophils | | K/uL | [facility] | | | | | | MEDICAL | | | | | | CENTER - | | | | | | LABORATORY | | + + + + + + | Absolute | 0.01 | 0.00 - 0.03 | [facility] | | | Immature | | K/uL | [facility] | | | Granulocyte | | | MEDICAL | | | s | | | CENTER - | | | | | | LABORATORY | | + + + + + + | % nRBC | 0 | 0 - 2 per 100 | [facility] | | | | | WBCs | [facility] | | | | | | MEDICAL | | | | | | CENTER - | | | | | | LABORATORY | | + + + + + + | Absolute | 0.00 | 0.00 - 0.01 | [facility] | | | nRBC | | K/uL | [facility] | | | | | | MEDICAL | | | | | | CENTER - | | | | | | LABORATORY | | + + + + + + + + | Specimen | + + | Blood | + + + + + + + | Performing | Address | City/State/Zipcode | Phone Number | | Organization | | | | + + + + + | [facility] | [address] | [place] | [phone] | | [facility] | | [address] | | | - LABORATORY | | | | + + + + + Comprehensive Metabolic Panel (09/04/2019 10:35 AM PDT) + + + + + + | Component | Value | Ref Range | Performed | Pathologist | | | | | At | Signature | + + + + + + | Na | 136 | 136 - 145 | [facility] | | | | | mmol/L | [facility] | | | | | | MEDICAL | | | | | | CENTER - | | | | | | LABORATORY | | + + + + + + | K | 3.4 | 3.4 - 5.1 | [facility] | | | | | mmol/L | [facility] | | | | | | MEDICAL | | | | | | CENTER - | | | | | | LABORATORY | | + + + + + + | Cl | 100 | 98 - 107 mmol/L | [facility] | | | | | | [facility] | | | | | | MEDICAL | | | | | | CENTER - | | | | | | LABORATORY | | + + + + + + | CO2 | 24 | 20 - 31 mmol/L | [facility] | | | | | | [facility] | | | | | | [facility]ICAL | | | | | | CENTER - | | | | | | LABORATORY | | + + + + + + | Anion Gap | 12 | 3 - 16 mmol/L | [facility] | | | | | | [facility] | | | | | | MEDICAL | | | | | | CENTER - | | | | | | LABORATORY | | + + + + + + | Glucose | 187 (H) | 60 - 106 mg/dL | [facility] | | | | | [facility] | | | | | | [facility]ICAL | | | | | | CENTER - | | | | | | LABORATORY | | + + + + + + | BUN | 8 (L) | 9 - 23 mg/dL | [facility] | | | [facility] | | | | | | [facility] - | | | | | | LABORATORY | | + + + + + + | Creatinine | 0.95 | 0.70 - 1.30 | [facility] | | | | | mg/dL | [facility] | | | | | | MEDICAL | | | | | | CENTER - | | | | | | LABORATORY | | + + + + + + | eGFR if not | >60Comment: GLOMERULAR | >=60 | [facility] | | | | FILTRATION | mL/min/1.73m2 | [facility] | | | [facility] | RATE,ESTIMATED | | MEDICAL | | | | mL/min/1.62h3Yrlr than | | CENTER - | | | | 60 Chronic kidney | | LABORATORY | | | | disease,if found over a | | | | | | 3-month period.Less than | | | | | | 15 Kidney failureFor | | | | | | | | | | | | Americans,multiply the | | | | | | calculated GFR by 1.21. | | | | | | | | | | + + + + + + | Calcium | 9.7 | 8.7 - 10.4 | [facility] | | | | | mg/dL | [facility] | | | | | | MEDICAL | | | | | | CENTER - | | | | | | LABORATORY | | + + + + + + | Albumin | 5.0 (H) | 3.2 - 4.8 g/dL | [facility] | | | | | | [facility] | | | | | | [facility]ICAL | | | | | | CENTER - | | | | | | LABORATORY | | + + + + + + | Bilirubin | 0.6 | 0.3 - 1.2 mg/dL | [facility] | | | Total | | | [facility] | | | | | | MEDICAL | | | | | | CENTER - | | | | | | LABORATORY | | + + + + + + | Total | 8.0 | 5.7 - 8.2 g/dL | [facility] | | | Protein | | | [facility] | | | | | | MEDICAL | | | | | | CENTER - | | | | | | LABORATORY | | + + + + + + | AST | 128 (H) | 0 - 34 U/L | [facility] | | | | | | [facility] | | | | | | MEDICAL | | | | | | CENTER - | | | | | | LABORATORY | | + + + + + + | ALT | 105 (H) | 10 - 49 U/L | [facility] | | | | | | [facility] | | | | | | MEDICAL | | | | | | CENTER - | | | | | | LABORATORY | | + + + + + + | Alkaline | 84 | 46 - 116 U/L | [facility] | | | Phosphatase | | | [facility] | | | | | | MEDICAL | | | | | | CENTER - | | | | | | LABORATORY | | + + + + + + | Globulin | 3.0 | 2.1 - 3.8 g/dL | [facility] | | | | | | [facility] | | | | | | MEDICAL | | | | | | CENTER - | | | | | | LABORATORY | | + + + + + + | Albumin/Lucrecia | 1.7 | 0.8 - 1.9 | [facility] | | | bulin Ratio | | | [facility] | | | | | [facility] | | | | | | CENTER - | | | | | | LABORATORY | | + + + + + + | BUN/Creatin | 8.4 | | [facility] | | | ine Ratio | | | [facility] | | | | | | MEDICAL | | | | | | CENTER - | | | | | | LABORATORY | | + + + + + + + + | Specimen | + + | Blood | + + + + + + + | Performing | Address | City/State/Zipcode | Phone Number | | Organization | | | | + + + + + | [facility] | [address] | [place] | [phone] | | [facility] | | [address] | | | - LABORATORY | | | | + + + + + from Last 3 Months Insurance + +--------+ +--------+-------+---------+--------+ | Payer | Benefi | Subscriber | Effect | Phone | Address | Type | | | t Plan | ID | oskar | | | | | | / | | Dates | | | | | | Group | | | | | | + +--------+ +--------+-------+---------+--------+ | PAC[employer] | PACIFI | [id number] | | | | Medica | | [...] | Self | [birth year] | [address] | | | al/Fam | | 1965 | [phone] | [address] [place], [place] | | | [place] | | | 4 (Home) | [address] | + +--------+ +--------+ + + Advance Directives + + + + + | Type | Date Recorded | Patient | Explanation | | | | Apparel Patternmaker | | + + + + + | Power of | | | | | Wood Preserving Plant Laborer | | | | + + + + + | Advance | 09/04/2019 12:11 | | | | Directive | PM | | | + + + + +"
--- OUTSIDE RECORDS SUMMARY | ~2019-10-03 | XMS | Clinical Summary ---
Demographics + + + | Address | [address] | | | [place] [address] | + + + | Home Phone | | + + + | Preferred Language | Unknown | + + + | Marital Status | Single | + + + | Gnosticism Affiliation | Unknown | + + + [...] Team Providers + +------+ + | Care Body And Fender Mechanic Name | Role | Phone | + +------+ + | Tanika Silvana MAX | PCP | | + +------+ + Source Comments LUPE is fully live on both [facility] Ambulatory and [facility] InPatient.[facility] Allergies No Known Allergies Medications + + [...] | | | + +--------+ +--------+-------+---------+--------+ | 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
--- OUTSIDE RECORDS SUMMARY | ~2019-10-03 | XMS | Encounter Summary ---
Demographics + + + | Address | [address] | | | [place] [address] | + + + | Home Phone | | + + + | Preferred Language | Unknown | + + + | Marital Status | Unknown | + + + | Yazidi Affiliation | Unknown | + + + | Race | Unknown | + + + | Ethnic Group | Unknown | + + + Author + + + | Author | [facility] | | | and Sanchezana | + + + | Organization | [facility] | | | [...] Team Providers + +------+ + | Care Hide Salter Name | Role | Phone | + +------+ + | Azeb Sagastume | PCP | | + +------+ + Reason for Referral Evaluate & Treat (Routine) +--------+ + + + + + | Status | Reason | Specialty | Diagnoses / | Referred By | Referred To | | | | | Procedures | Contact | Contact | +--------+ + + + + + | Denied | Specialty | Cardiology | Diagnoses | | [facility] | | | Services | | Atypical | Audrey, | Cardiology | | | Required | | chest pain | Austin York, | [address] | | | | | | MD [address] | [place], | | | | | | [address] | [place] | | | | | | [place], | [address] | | | | | | [place] | Phone: | | | | | | [address] | [phone] | | | | | | Phone: | Fax: | | | | | | [phone] | [phone] | | | | | | Fax: | | | | | | | [phone] | | +--------+ + + + + + Reason for Visit + + + | Reason | Comments | + + + | Chest Pain | walking and marlon heart pounding. light headed. cp. recent dx | | | PE on eliquis. found to be in a "SVT" appears to be tachycardic | | | in ED on arrival. | + + + Encounter Details +--------+ + + + + | Date | Type | Department | Care Team | Description | +--------+ + + + + | 09/03/ | Emergency | [facility] | Audrey, | Atypical chest pain | | 2020 | | [facility] EMER[facility]Y | Austin York MD [address] | (Primary Dx); | | | | CENTER [address] | [address] [place] | Anxiety; Pulmonary | | | | [place], [place] | [place] [address] | embolism without | | | | [address] | [phone] | acute cor pulmonale, | | | | [phone] | | unspecified | | | | | | chronicity, | | | | | | unspecified | | | | | | pulmonary embolism | | | | | | type (HCC) | +--------+ + + + + Social [...] + + + documented in this encounter Discharge Instructions Instructions Austin Ventura MD - 09/04/2019Continue your eliquis Gentle activity (walking etc) is fine As we discussed, return to the ER for worsening or changing symptoms documented in this encounter Medications at Time of Discharge + + + +---------+--------+ + | Medication | Sig | Dispensed | Refills | Start | End Date | | | | | | Date | | + + + +---------+--------+ + | apixaban (ELIQUIS) | Take 10 mg by mouth | | 0 | | | | 5 mg tablet | 2 times daily | | | | | + + + +---------+--------+ + | Empagliflozin | Take by mouth | | 0 | | | | (JARDIANCE PO) | | | | | | + + + +---------+--------+ + documented as of this encounter ED Notes Nancy Patel RN - 09/04/2019 12:02 PM PDTDc instructions given. Home in stable and impr angelica condition. Austin Demarco MD - 09/04/2019 10:47 AM PDT [facility] EMERGENCY DEPARTMENT ENCOUNTER NOTE [address] [place] [address] PCP:MAX Leonardo ROOM: ED10 DIAGNOSIS: 1. Atypical chest pain 2. Anxiety 3. Pulmonary embolism without acute cor pulmonale, unspecified chronicity, unspecified pulm onary embolism type (HCC) HPI Benjamin Altamirano is a 54 y.o. male who presents to the Emergency Department with a chief comp laint of chest pain. The patient had gone for a walk and when he returned home he developed the pain across his chest anteriorly. He contacted EMS. EMS found him to be in a sinus ta chycardia but with an otherwise reassuring EKG. He had received 4 baby aspirin. During tra nsport the patient became extremely anxious and so the only way they could convince him to c ome into the ER was to let him ride upfront in the ambulance here. On arrival he remains an xious and mildly tachycardic but with otherwise stable vital signs. His chest pain has cont inued. Last week he was seen at [facility] when he presented for some leg swell ing and some generalized weakness and was ultimately diagnosed with a pulmonary embolism. Estefanía bauman was started on Eliquis and states he has been taking those doses as prescribed. He did no t have any chest pain when he was diagnosed with a pulmonary embolism. PAST MEDICAL & SURGICAL HISTORY The patient has a past medical history of Diabetes ([facility]) and PE (pulmonary thromboembolism) ([facility]). The patient has no past surgical history on file. 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 The patient REVIEW OF SYSTEMS As in history of present illness. A 10 system review was otherwise negative PHYSICAL EXAM VITAL SIGNS: (first vital signs):Temp: 37.1 C (98.8 F) Pulse: 110 Resp: 16 SpO2: 96 % B P: (!) 142/91 There is no height or weight on file to calculate BMI. Constitutional: Well-appearing male patient. HEENT: Atraumatic, PERRL, Oropharynx benign. Neck: Supple with full range of motion. "No JVD Chest: Good air movement bilaterally. No wheezes, No rales. Cardiovascular: Normal S1 S2 Abdomen: Soft, nontender and no rebound, guarding, or masses Back: Within normal limits. Extremities: Nontender. Trace lower extremity edema, no calf asymmetry. Present distal puls es. Skin: Warm, Dry, No rashes Neurologic: Alert & oriented. Cranial nerves II-XII intact , Gait and speech are normal Psychiatric: Only anxious, but with otherwise normal mood, affect and judgement. EKG ECG (personally reviewed today): There is normal sinus rhythm with a rate of 95 bpm. There is left-axis deviation. The intervals are normal. The ST segments and T-waves are normal. No Q waves are present. LABS Results for orders placed or performed during the hospital encounter of 09/04/19 CBC with Differential Result Value Ref Range WBC 4.4 4.0 - 11.0 K/uL RBC 4.57 4.30 - 5.70 M/uL Hemoglobin 12.0 (L) 13.5 - 18.0 g/dL Hematocrit 36.6 (L) 40.0 - 51.0 % MCV 80.1 (L) 83.0 - 101.0 fL MCH 26.3 (L) 28.0 - 35.0 pg MCHC 32.8 32.0 - 36.0 g/dL RDW-CV 16.1 (H) <15.0 % RDW-SD 46.1 35.1 - 46.3 fL Platelet Count 214 140 - 440 K/uL MPV 10.3 6.5 - 12.4 fL % Neutrophils 56.5 45.0 - 82.0 % % Lymphocytes 29.1 20.0 - 45.0 % % Monocytes 12.1 (H) 4.0 - 12.0 % % Eosinophils 0.7 0.0 - 5.0 % % Basophils 1.4 (H) 0.0 - 1.0 % % Immature Granulocytes 0.2 0.0 - 0.4 % Absolute Neutrophils 2.47 1.80 - 8.50 K/uL Absolute Lymphocytes 1.27 0.60 - 3.20 K/uL Absolute Monocytes 0.53 0.00 - 1.00 K/uL Absolute Eosinophils 0.03 0.00 - 0.40 K/uL Absolute Basophils 0.06 0.00 - 0.10 K/uL Absolute Immature Granulocytes 0.01 0.00 - 0.03 K/uL % nRBC 0 0 - 2 per 100 WBCs Absolute nRBC 0.00 0.00 - 0.01 K/uL Comprehensive Metabolic Panel Result Value Ref Range Na 136 136 - 145 mmol/L K 3.4 3.4 - 5.1 mmol/L Cl 100 98 - 107 mmol/L CO2 24 20 - 31 mmol/L Anion Gap 12 3 - 16 mmol/L Glucose 187 (H) 60 - 106 mg/dL BUN 8 (L) 9 - 23 mg/dL Creatinine 0.95 0.70 - 1.30 mg/dL eGFR if not >60 >=60 mL/min/1.73m2 Calcium 9.7 8.7 - 10.4 mg/dL Albumin 5.0 (H) 3.2 - 4.8 g/dL Bilirubin Total 0.6 0.3 - 1.2 mg/dL Total Protein 8.0 5.7 - 8.2 g/dL AST 128 (H) 0 - 34 U/L ALT 105 (H) 10 - 49 U/L Alkaline Phosphatase 84 46 - 116 U/L Globulin 3.0 2.1 - 3.8 g/dL Albumin/Globulin Ratio 1.7 0.8 - 1.9 BUN/Creatinine Ratio 8.4 Troponin I Result Value Ref Range Troponin I <0.01 <0.06 ng/mL B Type Natriuretic Peptide Result Value Ref Range BNP 7 <100 pg/mL Protime INR Result Value Ref Range Prothrombin Time 16.0 (H) 11.3 - 13.9 seconds INR 1.2 (H) 0.9 - 1.1 ECG 12 lead Result Value Ref Range INTERPRETATION TEXT Not Confirmed ED COURSE & MEDICAL DECISION MAKING Pertinent Labs & Imaging studies were reviewed along with EMS notes and skilled nursing record s if applicable. (See chart for details) Medications and Allergy list reviewed. Nurses note and old records were reviewed The patient was seen and examined, EKG obtained on arrival was reassuring without evidence of ischemic change. Laboratory studies were sent showing unremarkable CBC and metabolic ramon el, some slight LFT elevation only. Troponin was undetectable, BNP normal. The patient was extremely anxious and was given a dose of lorazepam which helped significantly. That may b e contributing to his symptoms. Despite efforts I was unable to get the patient's records f [facility]. Regardless, the patient has known pulmonary emboli which may be contributing to his chest pain. He does not, however, have any vital sign abnormalities ot her than some mild tachycardia when he first got here which was likely related to anxiety. He is not hypoxemic or hypotensive and does not feel as though he is in any distress at this time. Discussed with him that we could obtain repeat chest CT but it would be very unlikel y to change his management at this time and he is comfortable with deferring. I did place a n outpatient referral for cardiology consultation for the chest pain but likely he would not be a candidate for stress testing until he has been therapeutic on his anticoagulation for a longer period of time. Discussed with the patient that if his symptoms change or worsen, for instance if he were to have syncope, he should return to the emergency department. Follow up information and return precautions were discussed in detail at the bedside prior to discharge and all questions were answered. Last Set of Vital Signs: Temp: 37.1 C (98.8 F) Pulse: 93 Resp: 16 SpO2: 98 % BP: (!) 14 FINAL IMPRESSION ICD-10-CM ICD-9-CM 1. Atypical chest pain R07.89 786.59 2. Anxiety F41.9 300.00 3. Pulmonary embolism without acute cor pulmonale, unspecified chronicity, unspecified pulm onary embolism type (HCC) I26.99 415.19 Follow-up Information [facility]. Specialty: Cardiology Contact information: [address] [facility] [address] New Prescriptions No medications on file Portions of this chart were created with Blend voice recognition software. Inadvertent so und alike substitutions may be present and are unintentional Austin Ventura MD 09/04/19 1218 Sarina Granados RN - 09/04/2019 10:27 AM PDTwalking and marlon heart pounding. light headed. cp. recent dx PE on eliquis. found to be in a "SVT" appears to be tachycardic in ED on arrival. Elect ronically signed by Sarina Vu RN at 09/04/2019 10:27 AM PDTdocumented in this encoun ter Plan of Treatment + +------+--------+ + + | Name | Type | Priori | Associated Diagnoses | Date/Time | | | | ty | | | + +------+--------+ + + | ED INFORMATION | LISA | Routin | | 09/04/2019 10:15 AM | | EXCHANGE | | e | | PDT | + +------+--------+ + + + + +--------+ + + | Name | Type | Priori | Associated Diagnoses | Order Schedule | | | | ty | | | + + +--------+ + + | * [facility] | Outpatient | Routin | Atypical chest | Ordered: 09/04/2019 | | Cardiology - AMB | Referral | e | pain | | | Referral | | | | | + + +--------+ + + documented as of this encounter Procedures + +--------+ [...] | | | FICATI | | | ON?/ | | | | | | 0 | | | 10:14? | | | DOCKIN | | | S, | | | EDWARD | | | ?MRN: | | | [id number] | | | [id number] | | | riteri | | | [...] .Flags | | | | | | [place] | | | ED | | | Dispar | | | ity | | | Measur | | | e - | | | [place] | | | has | | | [...] | | | s. | | | [facility] | | | | | | Health [...] | | | By: | | | [facility] | | | | | | Health [...] | | | St. | | | [facility] | | | y | | | [...] | | | St. | | | [facility] | | | y H. | | | [place] | | | [place] | | | Emer[place] | | | ncy | | | Chief | | | Compla | | | int: | | | SOB | | | Chase | | | 16, | | | 2020 | | | [facility] | | | [facility] | | | [facility] | | | y H. | | [...] | | | St. | | | [facility] | | | y H. | | [...] | | | St. | | | [facility] | | | y H. | | [...] | | | St. | | | [facility] | | | y H. | | [...] | | | St. | | | [facility] | | | y H. | | [...] | | AZEB | | | , SEARCH SPECIALIST | | | Nurse | | | [...] | | | ed.? | | | 2019 | | | [employer] | | | tive | | | Medica | | | l | | | Techno | | | logies | | | , Inc. | | | - | | | [email or web address] | | | llecti | | | vemedi | | | [email or web address] | | | m | +---+--------+ documented in this encounter Results ECG 12 lead (09/04/2019 10:46 AM [...] | | | | CHRISTIAN BARAJAS MD ([id number]) | | | | | | on [...] use as of May 09, | | [facility] | | | | 2019. Check reference | | MEDICAL | | [...] + + | [facility] | [address] | [place] | [phone] | | [facility] | | [address] | | | - LABORATORY | | [...] | | Time | | seconds | [facility] | | | | | | MEDICAL | | | | | | CENTER - | | | | | | LABORATORY | | + + + + + + | INR | 1.2 (H)Comment: Usual | 0.9 - 1.1 | [facility] | | | | Oral Anticoagulation | | [facility] | | | | Range: 2.0 [...] + + | [facility] | [address] | [place] | [phone] | | [facility] | | [address] | | | - LABORATORY | | [...] | | | | Comment:Reference | | [facility] | | | | Ranges: 0.00-0.06 = [...] | | | | | | [employer] | | | | | [...] + + | [facility] | [address] | [place] | [phone] | | [facility] | | [address] | | | - LABORATORY | | [...] 12 | 3 - 16 mmol/L | [facility] | | | | | | [facility] | | | | | | MEDICAL | | | | | | CENTER - | | | | | | LABORATORY | | + + + + + + | Glucose | 187 (H) | 60 - 106 mg/dL | [facility] | | | | [...] | | | | | mg/dL | [facility] | | | | | | MEDICAL | | | | | | CENTER - | | | | | | LABORATORY | | + + + + + + | eGFR if not | >60Comment: GLOMERULAR | >=60 | [facility] | | | | FILTRATION | mL/min/1.73m2 | [facility] | | | IRAQI | RATE,ESTIMATED | | MEDICAL | | | | mL/min/1.61n0Sjxd than | | CENTER - | | [...] | 9.7 | 8.7 - 10.4 | [facility] | | | | | mg/dL | [facility] | | | | | | MEDICAL [...] + | [facility] | [address] | [place] | [phone] | | [facility] | | [address] | | | - LABORATORY | | [...] | | | Cells | | | [facility] | | | | | | MEDICAL | | | | | | CENTER - | | | | | | LABORATORY | | + + + + + + | Red Blood | 4.57 | 4.30 - 5.70 | [facility] | | | Cells | | M/uL | [facility] | | | | | | MEDICAL | | | | | | CENTER - | | | | | | LABORATORY | | + + + + + + | Hemoglobin | 12.0 (L) | 13.5 - 18.0 | [facility] | | | | | g/dL | [facility] | | | | [...] | | Immature | | K/uL | [facility] | | | Granulocyte | | | MEDICAL | | | s | | | CENTER - | | | | | | LABORATORY | | + + + + + + | % nRBC | 0 | 0 - 2 per 100 | [facility] | | | | | WBCs | [facility] | | | | [...] [address] | [place] | [phone] | | [facility] | | [address] | | | - LABORATORY | | | | + + + + + documented in this encounter Visit Diagnoses + + | Diagnosis | + + | Atypical chest pain - Primary Other chest pain | + + | Anxiety Anxiety state, unspecified | + + | Pulmonary embolism without acute cor pulmonale, unspecified chronicity, unspecified | | pulmonary embolism type (HCC) | + + documented in this encounter
--- OUTSIDE RECORDS SUMMARY | ~2019-10-03 | XMS | Encounter Summary ---
Demographics + + + | Address | [address] | | | [place] [address] | + + + | Home Phone | | + + + | Preferred Language | Unknown | + + + | Marital Status | Single | + + + | Lutheran Affiliation | Unknown | + + + | Race | White | + + + | Ethnic Group | Not or | + + + Author + + + | Author | [facility] | + + + | Organization | [facility] | + + + | Address | Unknown | + + + | Phone | Unavailable | + + + Support + + +---------+ + | Name | Relationship | Address | Phone | + + +---------+ + | Eleonora Altamirano | ECON | Unknown | | + + +---------+ + Care Team Providers + +------+ + | Care Tungsten Refiner Name | Role | Phone | + +------+ + | Silvana Sagastume | PCP | | + +------+ + Encounter Details +--------+ + + + + | Date | Type | Department | Care Team | Description | +--------+ + + + + | 10/07/ | Hospital | Radiology/Imaging | Jared Harris, | | | 2017 | Encounter | Lab at [facility] [address] | PA-C [address] | | | | | [address] [facility] | Ave [place], [place] | | | | | [facility], | [address] | | | | | [place] [address], [facility] | [phone] | | | | | Floor [place], [place] | | | | | | [address] | | | | | | [phone] | | | +--------+ + + + [...]
--- OUTSIDE RECORDS SUMMARY | ~2019-10-03 | XMS | Clinical Summary ---
Demographics + + + | Address | [address] | | | [place] [address] | + + + | Home Phone | | + + + | Preferred Language | Unknown | + + + | Marital Status | Single | + + + | Oriental Orthodox Affiliation | Unknown | + + + [...] Team Providers + +------+ + | Care Tool And Die Engineer Name | Role | Phone | + +------+ + | Tanika Silvana MAX | PCP | | + +------+ + Source Comments LUPE is fully live on both [facility] Ambulatory and [facility] InPatient.[facility] Allergies No Known Allergies Medications [...] | | | + +--------+ +--------+-------+---------+--------+ | 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
--- OUTSIDE RECORDS SUMMARY | ~2019-10-03 | XMS | Encounter Summary ---
Demographics + + + | Address | [address] | | | [place] [address] | + + + | Home Phone | | + + + | Preferred Language | Unknown | + + + | Marital Status | Single | + + + | Nondenominational Affiliation | Unknown | + + + | Race | White | + + + | Ethnic Group | Not or | + + + Author + + + | Author | [facility] | + + + | Organization | [facility] | + + + | Address | Unknown | + + + | Phone | Unavailable | + + + Support + + +---------+ + | Name | Relationship | Address | Phone | + + +---------+ + | Eleonora Altamirano | ECON | Unknown | | + + +---------+ + Care Team Providers + +------+ + | Care Mica Splitter Name | Role | Phone | + +------+ + | Silvana Sagastume | PCP | | + +------+ + Encounter Details +--------+ + + + + | Date | Type | Department | Care Team | Description | +--------+ + + + + | 11/29/ | Public Safety Dispatcher | Orthopaedics at | [facility] | Back pain, | | 2017 | | [facility] | H, PA-C | unspecified back | | | | and Healing [address] | | location, | | | | [address] [facility] | | unspecified back | | | | [facility], | | pain laterality, | | | | Building | | unspecified | | | | Floor [place], [place] | | chronicity (Primary | | | | [address] | | Dx) | | | | [phone] | | | +--------+ + + + [...] | COMPARISON: 11/30/2016 FINDINGS: There are 5 [id number] | RADIOLOGY VOICE | | lumbar-type vertebral [...] Pain.COMPARISON: 11/30/2016FINDINGS: There are 5 | | uky-kko-stuirju lumbar-type vertebral bodies.There is no significant curvature [...] as now presented. | |There are 5 ukj-vut-ztcroap lumbar-type vertebral bodies. | | | |There [...]
--- OUTSIDE RECORDS SUMMARY | ~2019-10-03 | XMS | Encounter Summary ---
Demographics + + + | Address | [address] | | | [place] [address] | + + + | Home Phone | | + + + | Preferred Language | Unknown | + + + | Marital Status | Single | + + + | Mandaeism Affiliation | Unknown | + + + [...] Team Providers + +------+ + | Care Tinner Automatic Name | Role | Phone | + [...] | [address] [facility] | [address] [place], [place] | | | | | Health and [facility]aling, | [address] | | | | | [place] [address], [facility] | [phone] | | | | | Floor [place], [place] | | | | | | [address] | | | | | | [phone] | | | +--------+ + + + [...]
--- OUTSIDE RECORDS SUMMARY | ~2019-10-03 | XMS | Encounter Summary ---
Demographics + + + | Address | [address] [facility] [address] [facility] | | | [place] [address] | + + + | Home Phone | | + + + | Preferred Language | Unknown | + + + | Marital Status | Single | + + + | Hoahaoism Affiliation | Unknown | + + + | Race | White | + + + | Ethnic Group | Not or | + + + Author + + + | Author | [facility] | + + + | Organization | [facility] | + + + | Address | Unknown | + + + | Phone | Unavailable | + + + Support + + +---------+ + | Name | Relationship | Address | Phone | + + +---------+ + | Eleonora Altamirano | ECON | Unknown | | + + +---------+ + Care Team Providers + +------+ + | Care Chemical Worker Name | Role | Phone | + [...] | | with | [address] | [place], [place] | | | | | neurogenic | [place], [place] | [address] | | | | | claudication | [address] | Phone: | | | | | Facet | Phone: | [phone] | | | | | arthropathy | [phone] | Fax: | | | | | Protrusion | Fax: | [phone] | | | | | of lumbar | [phone] | | | | | | intervertebr [...] | | | | | neurogenic | [place], [place] | | | | | | claudication | [address] | | | | | | Facet | Phone: | | | | | | arthropathy | [phone] | | | | | | Procedures | Fax: | | | | | | ACUPUNCTURE | [phone] | | | | | | - [...] | | | | stenosis | PA-C [address] | | | | | | with | [address] | | | | | | neurogenic | [place], [place] | | | | | | claudication | [address] | | | | | | Facet | Phone: | | | | | | arthropathy | [phone] | | | | | | Procedures | Fax: | | | | | | PHYSICAL | [phone] | | | | | | THERAPY [...] Closed | | Spine | Diagnoses | [place], | Harris, | | | | | Other | MAX Pina | Jared Ramírez PA-C | | | | | intervertebr | [address] | [address] | | | | | al disc | Ave | Ave | | | | | degeneration | [place], [place] | [place], [place] | | | | | , lumbar | [address] | [address] | | | | | region | Phone: | Phone: | | | | | | [phone] | [phone] | | | | | | Fax: | Fax: | | | | | | [phone] | [phone] | +--------+--------+ + + + + Encounter [...] [address] | neurogenic | | | | [facility] for | e [place], [place] | claudication | | | | Health and Healing, | [address] | (Primary Dx); Facet | | | | Building [address] | [phone] | arthropathy; | | | | [place], [place] | | Protrusion of lumbar | | | | [address] | | intervertebral disc | | | | [phone] | | | +--------+---------+ + + + [...] without relief -He reports numerous injections at [facility] including Epidural steroid injectio ns x 6 with 20% relief in pain x 1 week and multiple lumbar RFAs, the last 2 months with 30% x 2 weeks. The patient has not tried: -Acupuncture Review of Systems: All other systems were reviewed by me personally on a complete review of systems questionna jamil that will be scanned into [employer]. Current medication list: Current Outpatient Prescriptions Medication [...] pressure) dependence DMII (diabetes mellitus, type 2) ([facility]) GERD (gastroesophageal reflux disease) DAXA [...] to date includi ng numerous injections in [facility]. MRI outlined above with central disc protrusion at L5-S1 an d multifactorial central stenosis at L3-4 including congential narrowing and facet hypertrop hy. Plan: -Xrays today without dynamic instability -Asked patient to bring current medications to next appointment to ensure they are updated -Will track down EMG/NCS report from [facility] 1 year ago and will update EPIC if this adds to diagnosis -Counseled on necessity of nicotine cessation -Counseled on multifactorial nature of axial spine pain, including facet arthropathy -Referral to Acupuncture -Referral to Physical Therapy -Continue management of pain medication by PCP -Referral to [facility] spine surgeon I spent 46 minutes rvwp-[id number] with the patient. I spent more than 50% of this visit in co ordination of care and counseling in which we discussed diagnosis, treatment, imaging studie s and follow-up. Jared Harris PA-C SPINE CENTER AT [address] [address] [facility] OPEN NOTE [[id number]] documented in this e ncounter Plan of [...]
--- OUTSIDE RECORDS SUMMARY | ~2019-10-03 | XMS | Encounter Summary ---
Demographics + + + | Address | [address] [facility] [facility] | | | [place] [address] | + + + | Home Phone | | + + + | Preferred Language | Unknown | + + + | Marital Status | Single | + + + | Confucianism Affiliation | Unknown | + + + | Race | White | + + + | Ethnic Group | Not or | + + + Author + + + | Author | [facility] | + + + | Organization | [facility] | + + + | Address | Unknown | + + + | Phone | Unavailable | + + + Support + + +---------+ + | Name | Relationship | Address | Phone | + + +---------+ + | Eleonora Altamirano | ECON | Unknown | | + + +---------+ + Care Team Providers + +------+ + | Care Spanish Literature Professor Name | Role | Phone | [...] | | with | [address] | [place], [place] | | | | | neurogenic | [place], [place] | [address] | | | | | claudication | [address] | Phone: | | | | | Facet | Phone: | [phone] | | | | | arthropathy | [phone] | Fax: | | | | | Protrusion | Fax: | [phone] | | | | | of lumbar | [phone] | | | | | | intervertebr [...] | | | | | neurogenic | [place], [place] | | | | | | claudication | [address] | | | | | | Facet | Phone: | | | | | | arthropathy | [phone] | | | | | | Procedures | Fax: | | | | | | ACUPUNCTURE | [phone] | | | | | | - [...] | | | | stenosis | PA-C [address] | | | | | | with | [address] | | | | | | neurogenic | [place], [place] | | | | | | claudication | [address] | | | | | | Facet | Phone: | | | | | | arthropathy | [phone] | | | | | | Procedures | Fax: | | | | | | PHYSICAL | [phone] | | | | | | THERAPY [...] Closed | | Spine | Diagnoses | [place], | Harris, | | | | | Other | [facility] Pina | Jared Ramírez PA-C | | | | | intervertebr | [address] | [address] | | | | | al disc | Ave | Ave | | | | | degeneration | [place], [place] | [place], [place] | | | | | , lumbar | [address] | [address] | | | | | region | Phone: | Phone: | | | | | | [phone] | [phone] | | | | | | Fax: | Fax: | | | | | | [phone] | [phone] | +--------+--------+ + + + + Encounter [...] [address] | neurogenic | | | | [facility] for | e [place], [place] | claudication | | | | Health and Healing, | [address] | (Primary Dx); Facet | | | | Building [address] | [phone] | arthropathy; | | | | [place], [place] | | Protrusion of lumbar | | | | [address] | | intervertebral disc | | | | [phone] | | | +--------+---------+ + + + [...] without relief -He reports numerous injections at [facility] including Epidural steroid injectio ns x 6 with 20% relief in pain x 1 week and multiple lumbar RFAs, the last 2 months with 30% x 2 weeks. The patient has not tried: -Acupuncture Review of Systems: All other systems were reviewed by me personally on a complete review of systems questionna jamil that will be scanned into [employer]. Current medication list: Current Outpatient Prescriptions Medication [...] pressure) dependence DMII (diabetes mellitus, type 2) ([facility]) GERD (gastroesophageal reflux disease) DAXA [...] to date includi ng numerous injections in [place]. MRI outlined above with central disc protrusion at L5-S1 an d multifactorial central stenosis at L3-4 including congential narrowing and facet hypertrop hy. Plan: -Xrays today without dynamic instability -Asked patient to bring current medications to next appointment to ensure they are updated -Will track down EMG/NCS report from [facility] 1 year ago and will update EPIC if this adds to diagnosis -Counseled on necessity of nicotine cessation -Counseled on multifactorial nature of axial spine pain, including facet arthropathy -Referral to Acupuncture -Referral to Physical Therapy -Continue management of pain medication by PCP -Referral to [facility] spine surgeon I spent 46 minutes bezk-ty-onqd with the patient. I spent more than 50% of this visit in co ordination of care and counseling in which we discussed diagnosis, treatment, imaging studie s and follow-up. Jared Harris PA-C SPINE CENTER AT [address] [address] [facility] OPEN NOTE [[id number]] documented in this e ncounter Plan of [...]
--- OUTSIDE RECORDS SUMMARY | ~2019-10-03 | XMS | Encounter Summary ---
Demographics + + + | Address | [address] [facility] | | | [place] [address] | + + + | Home Phone [...] Author + + + | Author | [facility] | + + + | Organization | [facility] | + + + | Address | Unknown | + + + | Phone | Unavailable | + + + Support + + +---------+ + | Name | Relationship | Address | Phone | + + +---------+ + | Eleonora Altamirano | ECON | Unknown | | + + +---------+ + Care Team Providers + +------+ + | Care Brain Wave Technician Name | Role | Phone | + +------+ + | Silvana Sagastume | PCP | | + +------+ + Encounter Details +--------+ + + + + | Date | Type | Department | Care Team | Description | +--------+ + + + + | 11/29/ | Fire Chief | Orthopaedics at | [facility] | Back pain, | | 2017 | [facility] | H, PA-C | unspecified back | | | | and Healing [address] | | location, | | | | [address] [place] for | | unspecified back | | | | [facility] and [facility]aling, | | pain laterality, | | | | Building | | unspecified | | | | Floor [place], [place] | | chronicity (Primary | | | | [address] | | Dx) | | | | [phone] | | | +--------+ + + + [...] | COMPARISON: 11/30/2016 FINDINGS: There are 5 kzv-xyl-pwildmh | RADIOLOGY VOICE | | lumbar-type vertebral [...] Pain.COMPARISON: 11/30/2016FINDINGS: There are 5 | | cwo-xxc-oeddncm lumbar-type vertebral bodies.There is no significant curvature [...] as now presented. | |There are 5 prh-oms-akbwtol lumbar-type vertebral bodies. | | | |There [...]
--- OUTSIDE RECORDS SUMMARY | ~2019-10-03 | XMS | Encounter Summary ---
Demographics + + + | Address | [address] [facility] [address] [facility] | | | [place] [address] | + + + | Home Phone | | + + + | Preferred Language | Unknown | + + + | Marital Status | Single | + + + | Yazdanism Affiliation | Unknown | + + + | Race | White | + + + | Ethnic Group | Not or | + + + Author + + + | Author | [facility] | + + + | Organization | [facility] | + + + | Address | Unknown | + + + | Phone | Unavailable | + + + Support + + +---------+ + | Name | Relationship | Address | Phone | + + +---------+ + | Eleonora Altamirano | ECON | Unknown | | + + +---------+ + Care Team Providers + +------+ + | Care Drawbridge Tender Name | Role | Phone | + +------+ + | Silvana Sagastume | PCP | | + +------+ + Encounter Details +--------+ + + + + | Date | Type | Department | Care Team | Description | +--------+ + + + + | 11/30/ | Hospital | Radiology/Imaging | [facility] | | | 2016 | Encounter | Lab at [facility] [address] PA-C | | | | | [address] [facility] for | | | | | | Health and Healing, | | | | | | [facility] | | | | | | Floor [place], [place] | | | | | | [address] | | | | | | [phone] | | | +--------+ + + + [...]
--- OUTSIDE RECORDS SUMMARY | ~2019-10-03 | XMS | Encounter Summary ---
Demographics + + + | Address | [address] [facility] [address] [facility] [address] | | | [place] [address] | + + + | Home Phone | | + + + | Preferred Language | Unknown | + + + | Marital Status | Single | + + + | Restorationist Affiliation | Unknown | + + + | Race | White | + + + | Ethnic Group | Not or | + + + Author + + + | Author | [facility] | + + + | Organization | [facility] | + + + | Address | Unknown | + + + | Phone | Unavailable | + + + Support + + +---------+ + | Name | Relationship | Address | Phone | + + +---------+ + | Eleonora Altamirano | ECON | Unknown | | + + +---------+ + Care Team Providers + +------+ + | Care Junior Electrical Engineer Name | Role | Phone | [...] | | | with | Ave | [place], [place] | | | | | neurogenic | [place], [place] | [address] | | | | | claudication | [address] | Phone: | | | | | Procedures | Phone: | [phone] | | | | | REQUEST TO | [phone] | Fax: | | | | | SURGERY | Fax: | [phone] | | | | | LOTTERY SALES CLERK | [phone] | | | | | | AR | | | | | | | LAMINEC/FACE | | | | | | | TECT/FORAMIN | | | | | | | ,LUMBAR AR | | | | | | | [...] | | with | [address] | [place], [place] | | | | | neurogenic | [place], [place] | [address] | | | | | claudication | [address] | Phone: | | | | | Facet | Phone: | [phone] | | | | | arthropathy | [phone] | Fax: | | | | | Protrusion | Fax: | [phone] | | | | | of lumbar | [phone] | | | | | | intervertebr [...] | | | Ave Center for | [facility] [place] | claudication | | | | Health and Healing, | [address] | (Primary Dx) | | | | Building 1 | [phone] | | | | | [place], [place] | | | | | | [address] | | | | | | [phone] | | | +--------+---------+ + + + [...] of seeing Mr. Benjamin Altamirano at the [facility] on November 30, 2016. As you know, Mr. Altamirano is a 51-year-old man who presents to me with a chief complaint of low back pain and bilateral lower extremity pain. To summarize his history of present illness, Mr. Altamirano' back pain started in 2001 while w orking at [facility]. After falling off a 4-bryant 5 [...] vasculitis. Social History: Mr. Altamirano lives in [place], [place]. He does not work. He does [...] as 5/5 strength in the bilateral hand application development intern, biceps, triceps, deltoids, hip flexors, hamstrin gs, quadriceps, tibialis anterior, and gastrocnemius muscles. Sensation is intact to light touch in all 4 extremities. On reflex examination, there is no De La Torre sign and no ankle cl onus. Coordination is intact to dhinby-fpze-ryszwv bilaterally without dysmetria. His regu lar, toe, [...] in his care. I spent 15 minutes paqi-bm-sjsc with the patient. I spent more than 50% of this visit in c oordination of care and counseling, in which we discussed the diagnosis, treatment, imaging studies, and follow-up. Sincerely, MD RICH Yanez/RENE /[id number] CC: ANTONIO Strickland FNP hanOscar MD - 11/30 3:15 PM PDTDictation #1 [id number] documented in this encou nter Plan of Treatment Not on filedocumented as of this encounter Visit Diagnoses + + | Diagnosis | + + | Lumbar stenosis with neurogenic claudication - Primary Spinal stenosis, lumbar | | region, with neurogenic claudication | + + documented in this encounter
--- OUTSIDE RECORDS SUMMARY | ~2019-10-03 | XMS | Encounter Summary ---
Demographics + + + | Address | [address] [facility] | | | [place] [address] | + + + | Home Phone | | + + + | Preferred Language | Unknown | + + + | Marital Status | Single | + + + | Christian Affiliation | Unknown | + + + | Race | White | + + + | Ethnic Group | Not or | + + + Author + + + | Author | [facility] | + + + | Organization | [facility] | + + + | Address | Unknown | + + + | Phone | Unavailable | + + + Support + + +---------+ + | Name | Relationship | Address | Phone | + + +---------+ + | Eleonora Altamirano | ECON | Unknown | | + + +---------+ + Care Team Providers + +------+ + | Care Footwear Factory Worker Name | Role | Phone | [...] Encounter | Lab at [facility] [address] PA-C | | | | | [address] [facility] for | | | | | | Health and Healing, | | | | | | [facility] | | | | | | Floor [place], [place] | | | | | | [address] | | | | | | [phone] | | | +--------+ + + + [...] | COMPARISON: 11/30/2016 FINDINGS: There are 5 xhe-xye-nkkqutw | RADIOLOGY VOICE | | lumbar-type vertebral [...] Pain.COMPARISON: 11/30/2016FINDINGS: There are 5 | | tdc-rwk-xfhaale lumbar-type vertebral bodies.There is no significant curvature [...] as now presented. | |There are 5 giv-pjj-vanyzev lumbar-type vertebral bodies. | | | |There [...]
--- OUTSIDE RECORDS SUMMARY | 2019-10-03 14:32 | XMS ---
PreManage Notification: BRIANNA CARRION Security Executive Vice President And Chief Financial Officer Events No recent Security Events currently on file CRITERIA MET - 6 ED Visits in 6 Months - [facility] - 2 Visits in 30 Days CARE PROVIDERS RZIWAN LOPEZ Physician District Plant Superintendent 08/28/2019-Current PHONE: [phone] AZEB KAPLAN Nurse Practitioner: Family Current PHONE: Unknown Jeanne has no Care Guidelines for this patient. Care History Medical/Surgical 09/03/2019 [facility] - PATIENT HAD AN APT WITH PHILLY REINA 09/03/2019 @ 9:00AM. - PATIENT INSURANCE IS MEDICAID FROM A DIFFERENT COUNTY-PATIENT NEEDS TO TRANSFER INSURANCE BEFORE PATIENT CAN BE SEEN FOR ESTABLISHING CARE APT. - [facility] RECOMMENDED PATIENT CONTACT NUMBER ON THE BACK OF INSURANCE CARD AND REQUEST TRANSFER TO [employer] INSURANCE FOR THIS AREA. - CHW ADVISED WALK IN CLINIC IS AVAILABLE TO PATIENT BUT ESTABLISHING CARE WITH A PROVIDER IS MOST IMPORTANT DUE TO MED REFILLS NEEDED. E.D. VISIT COUNT (12 MO.) [address] [facility] [place] TOTAL 8 NOTE: Visits indicate total known visits. ED/UCC VISIT TRACKING (12 MO.) 10/03/2019 14:30 [facility] [place] TYPE: Emergency COMPLAINT: - CHEST PAIN 09/04/2019 10:14 [facility] TYPE: Emergency DIAGNOSES: - Anxiety disorder, unspecified - Other pulmonary embolism without acute cor pulmonale - Other chest pain - Chest pain 09/02/2019 08:[address] [facility] [address] 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 [facility] [place] TYPE: Emergency COMPLAINT: - LT HEADED, SOB, DIZZY DIAGNOSES: - Other buttermilk drier operator (current) 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 - Type 2 diabetes mellitus with diabetic neuropathy, unspecifie - Shortness of breath - Other pulmonary embolism without acute cor pulmonale - Sleep apnea, unspecified 08/04/2019 13:55 [facility] [place] TYPE: Emergency COMPLAINT: - SHOULDER PAIN, NON INJURY DIAGNOSES: - Pain in right shoulder - Other fdc (current) 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 - Exposure to other [...] drugs, - Sleep apnea, unspecified - Other fdc (current) 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 - Type 2 diabetes mellitus with diabetic neuropathy, unspecifie - USP (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 insulin 10/24/2018 12:42 [facility] [place] TYPE: Emergency COMPLAINT: - FLANK PAIN DIAGNOSES: - Type 2 diabetes mellitus with diabetic neuropathy, unspecifie - Other buttermilk drier operator (current) 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 - Dorsalgia, unspecified - Unspecified abdominal pain INPATIENT VISIT TRACKING (12 MO.) No inpatient visits to display in this time frame [email or web address]
--- NOTE | 2019-10-03 20:25 | EKG ---
[facility] [address] [facility] [place], [place] [address] Signed Normal sinus rhythm Left axis deviation Abnormal ECG When compared with ECG of 02-SEP-2019 08:42, No significant change was found Confirmed by MICKY CISNEROS MD ([id number]) on 10/03/2019 8:25:26 PM Electronically Signed By: MICKY CISNEROS MD 10/03/192024 PATIENT NAME: KALEN CARRIONMARISEL MARROQUIN Electrocardiogram DATE OF : 69 PHYSICIAN: MICKY CISNEROS MD REPORT #: [id number] REPORT IS CONFIDENTIAL AND NOT TO BE RELEASED WITHOUT AUTHORIZATION
== END 2019-10-03 17:20 | disposition home or self-care (01) ==
LOC: ED 14:30
DX: R07.9 Chest pain, unspecified (principal); E11.40 Type 2 diabetes mellitus with diabetic neuropathy, unspecified; Z79.899 Other long term (current) 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
CPT/HCPCS: 71260; 80053; 83735; 84484; 85025; 93005; 93010; 96374; 99285-25; J2060; Q9967

== ENCOUNTER 2019-12-17 13:17 | Emergency (ER) | payer MEDICAID ==
[~2019-12-17] VITALS: Ht 185.4 cm; Wt 99.8 kg
--- OUTSIDE RECORDS SUMMARY | ~2019-12-17 | XMS | Clinical Summary ---
Demographics + + + | Address | [address] | | | [place] [address] | + + + | Home Phone | | + + + | Preferred Language | Unknown | + + + | Marital Status | Unknown | + + + | Yazdanism Affiliation | Unknown | + + + | Race | Unknown | + + + | Ethnic Group | Not or | + + + Author + + + | Author | [facility] | | | and [place] | + + + | Organization | [facility] | | | and [place] | + + + | Address | Unknown | + + + | Phone | Unavailable | + + + Support + + +---------+ + | Name | Relationship | Address | Phone | + + +---------+ + | Per Patient Non | ECON | Unknown | | + + +---------+ + Care Team Providers + +------+ + | Care Sewing Trimmer Name | Role | Phone | + +------+ + | Silvana Sagastume | PCP | | + +------+ + Allergies No Known Allergies Medications + + + +---------+------+------+-------+ | Medication | Sig | Dispensed | Refills | Star | End | Statu | | | | | | t | Date | s | | | | | | Date | | | + + + +---------+------+------+-------+ | apixaban (ELIQUIS) | Take 10 mg by mouth | | 0 | | | Activ | | 5 mg tablet | 2 times daily | | | | | e | + + + +---------+------+------+-------+ | Empagliflozin | Take by mouth | | 0 | | | Activ | | (JARDIANCE PO) | | | | | | e | + + + +---------+------+------+-------+ Active Problems Not on file Social History + +-------+ +--------+------+ | Tobacco Use | Types | Packs/Day | Years | Date | | | | | Used | | + +-------+ +--------+------+ | Never Assessed | | | | | + +-------+ +--------+------+ + + + | Sex Assigned at | Date Recorded | | | | + + + | Not on file | | + + + Last Filed Vital Signs + + + + + | Vital Sign | Reading | Time Taken | Comments | + + + + + | Blood Pressure | 144/91 | 09/04/2019 11:31 AM | | | | | PDT | | + + + + + | Pulse | 93 | 09/04/2019 11:57 AM | | | | | PDT | | + + + + + | Temperature | 37.1 C (98.8 F) | 09/04/2019 10:26 AM | | | | | PDT | | + + + + + | Respiratory Rate | 16 | 09/04/2019 11:57 AM | | | | | PDT | | + + + + + | Oxygen Saturation | 98% | 09/04/2019 11:57 AM | | | | | PDT | | + + + + + | Inhaled Oxygen | - | - | | | Concentration | | | | + + + + + | Weight | 99.8 kg (220 lb) | 09/04/2019 10:26 AM | | | | | PDT | | + + + + + | Height | - | - | | + + + + + | Body Mass Index | - | - | | + + + + + Plan of Treatment + + + + + | Health Maintenance | Due Date | Last | Comments | | | | Done | | + + + + + | Hepatitis C | | | | | Screening | 7 | | | + + + + + | Vaccine: | | | | | Dtap/Tdap/Td (1 - | 6 | | | | Tdap) | | | | + + + + + | Colorectal Cancer | | | | | Screening | 7 | | | | (Colonoscopy) | | | | + + + + + | Vaccine: Zoster (1 | | | | | of 2) | 7 | | | + + + + + | Vaccine: Influenza | | | | | (#1) | 0 | | | + + + + + | Med Mgmt: Cr | | 09/04/19 | | | | 1 | 20 | | + + + + + | Med Mgmt: HCT | | 09/04/19 | | | | 1 | 20 | | + + + + + | Med Mgmt: HGB | | 09/04/19 | | | | 1 | 20 | | + + + + + | Medication | | 09/04/19 | | | Management | 1 | 20 | | + + + + + Results Not on filefrom Last 3 Months Insurance + +--------+ +--------+-------+---------+--------+ | Payer | Benefi | Subscriber | Effect | Phone | Address | Type | | | t Plan | ID | oskar | | | | | | / | | Dates | | | | | | Group | | | | | | + +--------+ +--------+-------+---------+--------+ | PACIFICSOURCE | PACIFI | [id number] | | | | Medica | | MEDICAID HMO | CSOURC | | 020-Pr | | | id | | | E MDCD | | esent | | | | | | HMO | | | | | | + +--------+ +--------+-------+---------+--------+ + +--------+ +--------+ + + | Guarantor Name | Accoun | Relation to | Date | Phone | Billing Address | | | t Type | Patient | of | | | | | | | | | | + +--------+ +--------+ + + | Benjamin Altamirano | Person | Self | [birth year] | [address] | | | al/Fam | | 1965 | [phone] | [address] [place], [place] | | | [place] | | | 4 (Home) | [address] | + +--------+ +--------+ + + Advance Directives + + + + + | Type | Date Recorded | Patient | Explanation | | | | Carton Stenciler | | + + + + + | Power of | | | | | Drilling Assistant | | | | + + + + + | Advance | 09/04/2019 12:11 | | | | Directive | PM | | | + + + + +"
--- OUTSIDE RECORDS SUMMARY | ~2019-12-17 | XMS | Encounter Summary ---
Demographics + + + | Address | [address] | | | [place] [address] | + + + | Home Phone | | + + + | Preferred Language | Unknown | + + + | Marital Status | Single | + + + | Restoration Affiliation | Unknown | + + + | Race | White | + + + | Ethnic Group | Not or | + + + Author + + + | Author | [facility] | + + + | Organization | [facility] | + + + | Address | Unknown | + + + | Phone | Unavailable | + + + Support + + +---------+ + | Name | Relationship | Address | Phone | + + +---------+ + | Eleonora Altamirano | ECON | Unknown | | + + +---------+ + Care Team Providers + +------+ + | Care Environmental Programs Specialist Name | Role | Phone | + +------+ + | Silvana Sagastume | PCP | | + +------+ + Encounter Details +--------+ + + + + | Date | Type | Department | Care Team | Description | +--------+ + + + + | 11/29/ | Capital Equipment Specialist | Orthopaedics at | [facility] | Back pain, | | 2017 | [facility] | H, PA-C | unspecified back | | | | and Healing [address] | | location, | | | | [address] for | | unspecified back | | | | [facility] and [facility], | | pain laterality, | | | | Building | | unspecified | | | | Floor [place], [place] | | chronicity (Primary | | | | [address] | | Dx) | | | | [phone] | | | +--------+ + + + [...] on file | | + + + documented as of this encounter [...] + + X-RAY SCOLI SPINE ENTR MITCH AP &LAT (11/30/2016 3:17 PM PDT) + + | Specimen | + + | | + + + + + | Narrative | Performed At | + + + | STUDY: SPINE ENTR SRVY STDY AP & LAT HISTORY: Pain. | [facility] | | COMPARISON: 11/30/2016 FINDINGS: There are 5 lsw-qte-gwqbrug | RADIOLOGY VOICE | | lumbar-type vertebral [...] Pain.COMPARISON: 11/30/2016FINDINGS: There are 5 | | gyc-ces-dzzqbef lumbar-type vertebral bodies.There is no significant curvature [...] as now presented. | |There are 5 zut-zsm-jzenoot lumbar-type vertebral bodies. | | | |There [...]
--- OUTSIDE RECORDS SUMMARY | ~2019-12-17 | XMS | Clinical Summary ---
Demographics + + + | Address | [address] | | | [place] [address] | + + + | Home Phone | | + + + | Preferred Language | Unknown | + + + | Marital Status | Single | + + + | Samaritan Affiliation | Unknown | + + + [...] Team Providers + +------+ + | Care Coordinator Of Library Services Name | Role | Phone | + +------+ + | Tanika Silvana MAX | PCP | | + +------+ + Source Comments LUPE is fully live on both [facility] Amb[facility] and [facility] InPatient.[facility] Allergies No Known Allergies Medications + + [...] + + Plan of Treatment + + +-------+ + | Health Maintenance | Due Date | Last | Comments | | | | Done | | + + +-------+ + | Pneumococcal | | | | | vaccination (1 of 1 | 3 | | | | - PPSV23) | | | | + + +-------+ + | Influenza (Flu) | | | | | vaccination (#1) | 0 | | | + + +-------+ + Results Not on filefrom Last 3 Months Insurance + +--------+ +--------+-------+---------+--------+ | Payer | Benefi | Subscriber | Effect | Phone | Address | Type | | | t Plan | ID | oskar | | | | | | / | | Dates | | | | | | Group | | | | | | + +--------+ +--------+-------+---------+--------+ | [employer] MEDICAID | [employer] | [id number] | 03/13/19 | | | Medica | [...] | | al/Jatinder | | 1965 | [phone] | [place] [address] | | | [place] | | | 7 (Home) | | + +--------+ +--------+ + +
--- OUTSIDE RECORDS SUMMARY | ~2019-12-17 | XMS | Encounter Summary ---
Demographics + + + | Address | [address] | | | [place] [address] | + + + | Home Phone | | + + + | Preferred Language | Unknown | + + + | Marital Status | Single | + + + | Mormonism Affiliation | Unknown | + + + | Race | White | + + + | Ethnic Group | Not or | + + + Author + + + | Author | [facility] | + + + | Organization | [facility] | + + + | Address | Unknown | + + + | Phone | Unavailable | + + + Support + + +---------+ + | Name | Relationship | Address | Phone | + + +---------+ + | Eleonora Atlamirano | ECON | Unknown | | + + +---------+ + Care Team Providers + +------+ + | Care Derrick Boat Captain Name | Role | Phone | + [...] | | with | [address] | [place], [place] | | | | | neurogenic | [place], [place] | [address] | | | | | claudication | [address] | Phone: | | | | | Facet | Phone: | [phone] | | | | | arthropathy | [phone] | Fax: | | | | | Protrusion | Fax: | [phone] | | | | | of lumbar | [phone] | | | | | | intervertebr [...] | | | | | neurogenic | [place], [place] | | | | | | claudication | [address] | | | | | | Facet | Phone: | | | | | | arthropathy | [phone] | | | | | | Procedures | Fax: | | | | | | ACUPUNCTURE | [phone] | | | | | | - [...] | | | | stenosis | PA-C [address] | | | | | | with | [address] | | | | | | neurogenic | [place], [place] | | | | | | claudication | [address] | | | | | | Facet | Phone: | | | | | | arthropathy | [phone] | | | | | | Procedures | Fax: | | | | | | PHYSICAL | [phone] | | | | | | THERAPY [...] Closed | | Spine | Diagnoses | [place], | Harris, | | | | | Other | MAX Pina | Jared Ramírez PA-C | | | | | intervertebr | [address] | [address] | | | | | al disc | Ave | Ave | | | | | degeneration | [place], [place] | [place], [place] | | | | | , lumbar | [address] | [address] | | | | | region | Phone: | Phone: | | | | | | [phone] | [phone] | | | | | | Fax: | Fax: | | | | | | [phone] | [phone] | +--------+--------+ + + + + Encounter Details +--------+---------+ + + + | Date | Type | Department | Care Team | Description | +--------+---------+ + + + | 10/07/ | Office | [facility] at | Jared Harris, | Lumbar stenosis with | | 2016 | Visit | [facility] [address] | PA-C [address] | neurogenic | | | | [facility] for | e [place], [place] | claudication | | | | Health and Healing, | [address] | (Primary Dx); Facet | | | | Building [address] | [phone] | arthropathy; | | | | [place], [place] | | Protrusion of lumbar | | | | [address] | | intervertebral disc | | | | [phone] | | | +--------+---------+ + + + [...] without relief -He reports numerous injections at [facility] including Epidural steroid injectio ns x 6 with 20% relief in pain x 1 week and multiple lumbar RFAs, the last 2 months with 30% x 2 weeks. The patient has not tried: -Acupuncture Review of Systems: All other systems were reviewed by me personally on a complete review of systems questionna jamil that will be scanned into [employer]. Current medication list: Current Outpatient Prescriptions Medication [...] pressure) dependence DMII (diabetes mellitus, type 2) (HCC) GERD (gastroesophageal reflux disease) DAXA (obstructive sleep [...] to date includi ng numerous injections in [place]. MRI outlined above with central disc protrusion at L5-S1 an d multifactorial central stenosis at L3-4 including congential narrowing and facet hypertrop hy. Plan: -Xrays today without dynamic instability -Asked patient to bring current medications to next appointment to ensure they are updated -Will track down EMG/NCS report from [place] 1 year ago and will update EPIC if this adds to diagnosis -Counseled on necessity of nicotine cessation -Counseled on multifactorial nature of axial spine pain, including facet arthropathy -Referral to Acupuncture -Referral to Physical Therapy -Continue management of pain medication by PCP -Referral to [facility] spine surgeon I spent 46 minutes bwgw-ga-assw with the patient. I spent more than 50% of this visit in co ordination of care and counseling in which we discussed diagnosis, treatment, imaging studie s and follow-up. Jared Harris PA-C [facility] [address] [place] [id number] [facility] OPEN NOTE [12242] documented in this e ncounter Plan of [...]
--- OUTSIDE RECORDS SUMMARY | ~2019-12-17 | XMS | Encounter Summary ---
Demographics + + + | Address | [address] | | | [place] [address] | + + + | Home Phone | | + + + | Preferred Language | Unknown | + + + | Marital Status | Single | + + + | Faith Affiliation | Unknown | + + + [...] Providers + +------+ + | Care Loan Interviewer Name | Role | Phone | + +------+ + | Silvana Sagastume | PCP | | + +------+ + Encounter Details +--------+ + + + + | Date | Type | Department | Care Team | Description | +--------+ + + + + | 11/30/ | Hospital | Radiology/Imaging | [facility] | | | 2016 | Encounter | Lab at [facility] [address] PA-C | | | | | [address] [facility] for | | | | | | Health and Healing, | | | | | | [facility] | | | | | | Floor [place], [place] | | | | | | [address] | | | | | | [phone] | | | +--------+ + + + [...]
--- OUTSIDE RECORDS SUMMARY | ~2019-12-17 | XMS | Encounter Summary ---
Demographics + + + | Address | [address] | | | [place] [address] | + + + | Home Phone | | + + + | Preferred Language | Unknown | + + + | Marital Status | Single | + + + | Latter-Day Affiliation | Unknown | + + + | Race | White | + + + | Ethnic Group | Not or | + + + Author + + + | Author | [facility] | + + + | Organization | [facility] | + + + | Address | Unknown | + + + | Phone | Unavailable | + + + Support + + +---------+ + | Name | Relationship | Address | Phone | + + +---------+ + | Eleonora Altamirano | ECON | Unknown | | + + +---------+ + Care Team Providers + +------+ + | Care Sports Physiologist Name | Role | Phone | + [...] | | | with | Ave | [place], [place] | | | | | neurogenic | [place], [place] | [address] | | | | | claudication | [address] | Phone: | | | | | Procedures | Phone: | [phone] | | | | | REQUEST TO | [phone] | Fax: | | | | | SURGERY | Fax: | [phone] | | | | | SPEECH PATHOLOGY SUPERVISOR | [phone] | | | | | | RI | | | | | | | LAMINEC/FACE | | | | | | | TECT/FORAMIN | | | | | | | ,LUMBAR RI | | | | | | | [...] | | with | [address] | [place], [place] | | | | | neurogenic | [place], [place] | [address] | | | | | claudication | [address] | Phone: | | | | | Facet | Phone: | [phone] | | | | | arthropathy | [phone] | Fax: | | | | | Protrusion | Fax: | [phone] | | | | | of lumbar | [phone] | | | | | | intervertebr [...] | | | [facility] | [facility] [place] | claudication | | | | Health and Healing, | [address] | (Primary Dx) | | | | Building [address] | [phone] | | | | | [place], [place] | | | | | | [address] | | | | | | [phone] | | | +--------+---------+ + + + [...] of seeing Mr. Benjamin [facility]ir[facility] at [facility] November 30, [facility]. As you know, Mr. Altamirano is a 51-year-old man who presents to me with a chief complaint of low back pain and bilateral lower extremity pain. To summarize his history of present illness, Mr. Altamirano' back pain started in 2001 while w orking at [facility]. After falling off a 4-bryant 5 or [...] vasculitis. Social History: Mr. Altamirano lives in [place], [place]. He does not work. He does [...] as 5/5 strength in the bilateral hand glass vial bending conveyor feeder, biceps, triceps, deltoids, hip flexors, hamstrin gs, quadriceps, tibialis anterior, and gastrocnemius muscles. Sensation is intact to light touch in all 4 extremities. On reflex examination, there is no De La Torre sign and no ankle cl onus. Coordination is intact to juocnv-hccf-zivprn bilaterally without dysmetria. His regu lar, toe, [...] very much for allowing me to participat merna in his care. I spent 15 minutes fovm-lz-pqqy with the patient. I spent more than 50% of this visit in c oordination of care and counseling, in which we discussed the diagnosis, treatment, imaging studies, and follow-up. Sincerely, MD RICH Yanez/RENE /[id number] CC: ANTONIO Strickland FNP Oscar Hatfield MD - 11/30 3:15 PM PDTDictation #1 [id number] documented in this encou nter Plan of Treatment Not on filedocumented as of this encounter Visit Diagnoses + + | Diagnosis | + + | Lumbar stenosis with neurogenic claudication - Primary Spinal stenosis, lumbar | | region, with neurogenic claudication | + + documented in this encounter
--- OUTSIDE RECORDS SUMMARY | ~2019-12-17 | XMS | Encounter Summary ---
Demographics + + + | Address | [address] | | | [place] [address] | + + + | Home Phone [...] Author + + + | Author | [facility] | + + + | Organization | [facility] | + + + | Address | Unknown | + + + | Phone | Unavailable | + + + Support + + +---------+ + | Name | Relationship | Address | Phone | + + +---------+ + | Eleonora Altamirano | ECON | Unknown | | + + +---------+ + Care Team Providers + +------+ + | Care Rock Crushing Machine Operator Name | Role | Phone | [...] | [address] [facility] | Ave [place], [place] | | | | | Health and Healing, | [address] | | | | | [place] [address], [facility] | [phone] | | | | | Floor [place], [place] | | | | | | [address] | | | | | | [phone] | | | +--------+ + + + [...]
--- OUTSIDE RECORDS SUMMARY | ~2019-12-17 | XMS | Encounter Summary ---
Demographics + + + | Address | [address] | | | [place] [address] | + + + | Home Phone [...] + + + | Author | [facility] | + + + | Organization | [facility] | + + + | Address | Unknown | + + + | Phone | Unavailable | + + + Support + + +---------+ + | Name | Relationship | Address | Phone | + + +---------+ + | Eleonora Altamirano | ECON | Unknown | | + + +---------+ + Care Team Providers + +------+ + | Care Security Manager Name | Role | Phone | + +------+ + | Silvana Sagastume | PCP | | + +------+ + Encounter Details +--------+ + + + + | Date | Type | Department | Care Team | Description | +--------+ + + + + | 11/30/ | Hospital | Radiology/Imaging | [facility] | | | 2016 | Encounter | Lab at [facility] [address] PA-C | | | | | [address] [facility] for | | | | | | Health and Healing, | | | | | | [facility] | | | | | | Floor [place], [place] | | | | | | [address] | | | | | | [phone] | | | +--------+ + + + [...] | COMPARISON: 11/30/2016 FINDINGS: There are 5 yqy-lcs-qvwizbx | RADIOLOGY VOICE | | lumbar-type vertebral [...] Pain.COMPARISON: 11/30/2016FINDINGS: There are 5 | | htd-aeg-wjnerbw lumbar-type vertebral bodies.There is no significant curvature [...] as now presented. | |There are 5 els-egq-tmfxtgq lumbar-type vertebral bodies. | | | |There [...]
--- OUTSIDE RECORDS SUMMARY | ~2019-12-17 | XMS | Encounter Summary ---
Demographics + + + | Address | [address] | | | [place] [address] | + + + | Home Phone | | + + + | Preferred Language | Unknown | + + + | Marital Status | Unknown | + + + | Jehovah'S Witness Affiliation | Unknown | + + + | Race | Unknown | + + + | Ethnic Group | Not or | + + + Author + + + | Author | [facility] | | | and [place] | + + + | Organization | [facility] | | | [...] Team Providers + +------+ + | Care Branch Sales And Service Representative Name | Role | Phone | + [...] | | Services | | Atypical | Audrey | Cardiology | | | Required | | chest pain | Austin York, | [address] | | | | | | MD [address] | [place], | | | | | | [address] | [place] | | | | | | [place], | [address] | | | | | | [place] | Phone: | | | | | | [address] | [phone] | | | | | | Phone: | Fax: | | | | | | [phone] | [phone] | | | | | | Fax: | | | | | | | [phone] | | +--------+ + + + + [...] + + | 09/03/ | Emergency | [facility] | Audrey, | Atypical chest pain | | 2020 | | [facility] | Austin York MD [address] | (Primary Dx); | | | | CENTER [address] | [address] [place] | Anxiety; Pulmonary | | | | [place], [place] | [place] [address] | embolism without | | | | [address] | [phone] | acute cor pulmonale, | | | | [phone] | | unspecified | | | | [...] Instructions Austin Ventura MD - 09/04/2019Continue your michellenicolas Gentle activity (walking etc) is fine As [...] Demarco MD - 09/04/2019 10:47 AM PDT [facility] EMERGENCY DEPARTMENT ENCOUNTER NOTE [address] [place] [address] PCP:MAX Leonardo ROOM: ED10 DIAGNOSIS: 1. Atypical [...] inued. Last week he was seen at [facility] when he presented for some leg swell ing and some generalized weakness and was ultimately diagnosed with a pulmonary embolism. H e was started on Eliquis and states he has been taking those doses as prescribed. He did no t have any chest pain when he was diagnosed with a pulmonary embolism. PAST MEDICAL & SURGICAL HISTORY The patient has a past medical history of Diabetes (HCC) and PE (pulmonary thromboembolism) ([facility]). The patient has no past surgical history on file. 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 (See chart for [...] unable to get the patient's records f [facility]. Regardless, the patient has known pulmonary emboli [...] type (HCC) I26.99 415.19 Follow-up Information [facility]. Specialty: Cardiology Contact information: [address] [phone] New Prescriptions No medications on file Portions of this chart were created with [employer] voice recognition software. Inadvertent so und alike substitutions may be present and are unintentional Austin Ventura MD 09/04/19 1218 Sarina Granados RN - 09/04/2019 10:27 AM [facility] loc. light headed. cp. recent dx PE on [...] | | | ?MRN: | | | [id number] | | | [id number] | | | riteri | | | [...] .Flags | | | | | | [place] | | | ED | | | Dispar | | | ity | | | Measur | | | e - | | | [place] | | | has | | | [...] | | | s. | | | [place] | | | | | | Health [...] | | | By: | | | [place] | | | | | | Health [...] | | | St. | | | [place] | | | y | | | [...] | | | St. | | | [place] | | | y H. | | | [place] | | | [place] | | | [place] | | | ncy | | | Chief | | | Compla | | | int: | | | SOB | | | Chase | | | 16, | | | 2020 | | | [facility] | | | [facility] | | | [place] | | | y H. | | [...] | | | St. | | | [place] | | | y H. | | [...] | | | St. | | | [place] | | | y H. | | [...] | | | St. | | | [place] | | | y H. | | [...] | | | St. | | | [place] | | | y H. | | [...] | | AZEB | | | , MARKETING PRODUCTION COORDINATOR | | | Nurse | | | [...] | | | | CHRISTIAN BARAJAS MD ([id number]) | | | | | | on [...] [address] | [place] | [phone] | | [facility] | | [address] | | | - LABORATORY | | [...] | | Time | | seconds | [facility] | | | | [...] [address] | [place] | [phone] | | [facility] | | [address] | | | - LABORATORY | | [...] | | | | | | [employer] | | | | | [...] ST. | [address] | [place] | [phone] | | [facility] | | [address] | | | - LABORATORY | | [...] + + + + + + | eGFR, | >60Comment: GLOMERULAR | >=60 | [facility] | | | non- | FILTRATION | mL/min/1.73m2 | [facility] | | | [place] | RATE,ESTIMATED | | MEDICAL | | | | mL/min/1.28j1Aocd than | | CENTER - | | [...] | | | | mg/dL | [facility] | | | | [...] | bulin Ratio | | | [facility] | | | | | | MEDICAL | | | | | | CENTER - | | | | | | LABORATORY | | + + + + + + | BUN/Creatin | 8.4 | | [facility] | | | ine Ratio | | | [facility] | | [...] + | [facility] | [address] | [place] | [phone] | | [facility] | | [address] | | | - LABORATORY | | [...] | | Cells | | | [facility] | | [...] | Eosinophils | | K/uL | [facility] | | | | | | MEDICAL | | | | | | CENTER - | | | | | | LABORATORY | | + + + + + + | Absolute | 0.06 | 0.00 - 0.10 | [facility] | | | Basophils | | K/uL | [facility] | | | | | | MEDICAL | | | | | | CENTER - | | | | | | LABORATORY | | + + + + + + | Absolute | 0.01 | 0.00 - 0.03 | [facility] | | | Immature | | K/uL | [facility] | | | Granulocyte | | | MEDICAL | | | s | | | CENTER - | | | | | | LABORATORY | | + + + + + + | % nRBC | 0 | 0 - 2 per 100 | [facility] | | | | | WBCs | [facility] | | | | | | MEDICAL | | | | | | CENTER - | | | | | | LABORATORY | | + + + + + + | Absolute | 0.00 | 0.00 - 0.01 | [facility] | | | nRBC | | K/uL | [facility] | | | | [...] [address] | [place] | [phone] | | [facility] | | [address] | | | - LABORATORY | | [...]
--- OUTSIDE RECORDS SUMMARY | 2019-12-17 13:20 | XMS ---
PreManage Notification: BRIANNA CARRION Security Program Review Director Events No recent Security Events currently on file CRITERIA MET - 6 ED Visits in 6 Months CARE PROVIDERS RIZWAN LOPEZ Physician Ic Design Engineer 08/28/2019-Current PHONE: [phone] AZEB KAPLAN Nurse Practitioner: Family Current PHONE: Unknown Jeanne has no Care Guidelines for this patient. Care History Medical/Surgical 10/08/2019 [facility] - W CALLED PATIENT- UNABLE TO CONTACT PATIENT- - PATIENT ADDRESS AND INSURANCE IS LISTED IN ANOTHER COUNTY- 09/03/2019 [facility] - PATIENT HAD AN APT WITH PHILLY REINA 09/03/2019 @ 9:00AM. - PATIENT INSURANCE IS MEDICAID FROM A DIFFERENT COUNTY-PATIENT NEEDS TO TRANSFER INSURANCE BEFORE PATIENT CAN BE SEEN FOR ESTABLISHING CARE APT. - CHW RECOMMENDED PATIENT CONTACT NUMBER ON THE BACK OF INSURANCE CARD AND REQUEST TRANSFER TO [employer] INSURANCE FOR THIS AREA. - CHW ADVISED WALK IN CLINIC IS AVAILABLE TO PATIENT BUT ESTABLISHING CARE WITH A PROVIDER IS MOST IMPORTANT DUE TO MED REFILLS NEEDED. E.D. VISIT COUNT (12 MO.) [address] Debra Greer 7 MARITZA Gutierrez TOTAL 8 NOTE: Visits indicate total known visits. ED/UCC VISIT TRACKING (12 MO.) 12/17/2019 13:18 [facility] [place] TYPE: Emergency COMPLAINT: - CHEST PAIN 10/03/2019 14:30 [facility] [place] TYPE: Emergency COMPLAINT: - CHEST PAIN DIAGNOSES: - Chest pain, unspecified - Other fci (current) 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 - Type 2 diabetes mellitus with diabetic neuropathy, unspecifie [facility] DIAGNOSES: - Anxiety disorder, unspecified - Other pulmonary embolism without acute cor pulmonale - Other chest pain - Chest pain 09/02/2019 08:30 [facility] [place] TYPE: Emergency COMPLAINT: - SOB DIAGNOSES: - Anemia, unspecified - Dyspnea, unspecified - Sleep apnea, unspecified - Other air brake man (current) 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 - Shortness of breath - Other pulmonary embolism without acute cor pulmonale - intermediate (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 anticoagulants - Type 2 diabetes mellitus with diabetic neuropathy, unspecifie 08/27/2019 10:32 [facility] [place] TYPE: Emergency COMPLAINT: - DIZZINESS DIAGNOSES: - Hemorrhage of anus and rectum - Other air brake man (current) 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 - Type 2 diabetes mellitus with diabetic neuropathy, unspecifie - Gastrointestinal hemorrhage, unspecified 08/21/2019 13:37 [facility] [place] TYPE: Emergency COMPLAINT: - LT HEADED, SOB, DIZZY DIAGNOSES: - Other fci (current) 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 - Type 2 diabetes mellitus with diabetic neuropathy, unspecifie - Shortness of breath - Other pulmonary embolism without acute cor pulmonale - Sleep apnea, unspecified 08/04/2019 13:55 [facility] [place] TYPE: Emergency COMPLAINT: - SHOULDER PAIN, NON INJURY DIAGNOSES: - Pain in right shoulder - Other fci (current) 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 - Exposure to other [...] drugs, - Sleep apnea, unspecified - Other fci (current) 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 - Type 2 diabetes mellitus with diabetic neuropathy, unspecifie - 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
[2019-12-17] MEDS ORDERED: DULOXETINE HCL60 MG PO (13:31)
[2019-12-17] MEDS ORDERED: LORAZEPAM0.5 MG PO (13:39)
--- NOTE | 2019-12-17 18:54 | EKG ---
[facility] [address] [facility] [place], [place] [address] Signed Sinus tachycardia Left axis deviation Septal infarct , age undetermined Abnormal ECG When compared with ECG of 03-OCT-2019 14:33, No significant change was found Confirmed by MICKY CISNEROS MD ([id number]) on 12/17/2019 6:53:51 PM Electronically Signed By: MICKY CISNEROS MD 12/17/19 1854 PATIENT NAME: MURALIBRIANNA Electrocardiogram DATE OF : 69 PHYSICIAN: MICKY CISNEROS MD REPORT #: [id number] REPORT IS CONFIDENTIAL AND NOT TO BE RELEASED WITHOUT AUTHORIZATION
== END 2019-12-17 14:44 | disposition home or self-care (01) ==
LOC: ED 13:17
DX: K21.9 Gastro-esophageal reflux disease without esophagitis (principal); E11.40 Type 2 diabetes mellitus with diabetic neuropathy, unspecified; G47.30 Sleep apnea, unspecified; Z79.899 Other long term (current) 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
CPT/HCPCS: 71045; 80053; 84484; 85025; 93005; 93010; 99285-25

== ENCOUNTER 2020-02-14 13:08 | Emergency (ER) | payer MEDICAID ==
[~2020-02-14] VITALS: Ht 185.4 cm; Wt 99.8 kg
[~2020-02-14 13:08] MED LIST changes: +DULOXETINE HCL60 MG PO; +LORAZEPAM0.5 MG PO
--- OUTSIDE RECORDS SUMMARY | 2020-02-14 13:12 | XMS ---
PreManage Notification: BRIANNA CARRION Security Manager Trade Events No recent Security Events currently on file CRITERIA MET - 6 ED Visits in 6 Months - PDMP CARE PROVIDERS RIZWAN LOPEZ Physician Oil Field Laborer 08/28/2019-Current PHONE: [phone] AZBE KAPLAN Nurse Practitioner: Family Current PHONE: [phone] Jeanne has no Care Guidelines for this patient. Care History Medical/Surgical 12/18/2019 [facility] - W CONTACTED PATIENT- DISCUSSED INSURANCE CHANGE-PATIENT STATED HE CONTACTED [facility] OVER A MONTH AGO TO SWITCH TO [facility]. HE HAS NOT HEARD BACK AND HAS NOT RECEIVED ANYTHING IN THE MAIL. - W PROVIDED [facility] CONTACT NUMBER AND [employer] CUSTOMER SERVICE NUMBER -STATED IT WOULD BE BEST TO MAKE A FOLLOW UP CALL. ONCE PATIENT HAS OPERATIONS SUPPORT MANAGER IN THE AREA -W CAN HELP PATIENT ESTABLISH CARE WITH A PROVIDER. 10/08/2019 [facility] - W CALLED PATIENT- UNABLE TO CONTACT PATIENT- - PATIENT ADDRESS AND INSURANCE IS LISTED IN ANOTHER COUNTY- 09/03/2019 [facility] - PATIENT HAD AN APT WITH [facility]Y RE[facility] 09/03/2019 @ 9:00AM. - PATIENT INSURANCE IS MEDICAID FROM A DIFFERENT COUNTY-PATIENT NEEDS TO TRANSFER INSURANCE BEFORE PATIENT CAN BE SEEN FOR ESTABLISHING CARE APT. - CHW RECOMMENDED PATIENT CONTACT NUMBER ON THE BACK OF INSURANCE CARD AND REQUEST TRANSFER TO [employer] INSURANCE FOR THIS AREA. - CHW ADVISED WALK IN CLINIC IS AVAILABLE TO PATIENT BUT ESTABLISHING CARE WITH A PROVIDER IS MOST IMPORTANT DUE TO MED REFILLS NEEDED. E.D. VISIT COUNT (12 MO.) [address] [facility] TOTAL 8 NOTE: Visits indicate total known visits. ED/UCC VISIT TRACKING (12 MO.) 02/14/2020 13:09 [facility] [place] TYPE: Emergency COMPLAINT: - FALL, LOWER BACK PAIN 12/17/2019 13:18 [facility] [place] TYPE: Emergency COMPLAINT: - CHEST PAIN DIAGNOSES: - Other chest pain - Sleep apnea, unspecified - Type 2 diabetes mellitus with diabetic neuropathy, unspecified - Gastro-esophageal reflux disease without esophagitis - Other long term care phlebotomist (current) 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 10/03/2019 14:30 [facility] [place] [facility]: Emergency COMPLAINT: - CHEST PAIN DIAGNOSES: - Chest pain, unspecified - Other long term care phlebotomist (current) 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 - Type 2 diabetes mellitus with diabetic neuropathy, unspecified 09/04/2019 10:14 [facility] Debra [place] TYPE: Emergency DIAGNOSES: - Anxiety disorder, unspecified - Other pulmonary embolism without acute cor pulmonale - Other chest pain - Chest pain 09/02/2019 08:30 [facility] [place] TYPE: Emergency COMPLAINT: - SOB DIAGNOSES: - Anemia, unspecified - Dyspnea, unspecified - Sleep apnea, unspecified - Contact with and (suspected) exposure to other viral communicable diseases - Other halfway (current) 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 - Shortness of breath - Other pulmonary embolism without acute cor pulmonale - custodial (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 anticoagulants - Type 2 diabetes mellitus with diabetic neuropathy, unspecified 08/27/2019 10:32 [facility] [place] TYPE: Emergency COMPLAINT: - DIZZINESS DIAGNOSES: - Hemorrhage of anus and rectum - Other halfway (current) 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 - Type 2 diabetes mellitus with diabetic neuropathy, unspecified - Gastrointestinal hemorrhage, unspecified 08/21/2019 13:37 [facility] [place] TYPE: Emergency COMPLAINT: - LT HEADED, SOB, DIZZY DIAGNOSES: - Contact with and (suspected) exposure to other viral communicable diseases - Other long term care phlebotomist (current) 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 - Type 2 diabetes mellitus with diabetic neuropathy, unspecified - Shortness of breath - Other pulmonary embolism without acute cor pulmonale - Sleep apnea, unspecified 08/04/2019 13:[address] [facility] [place] TYPE: Emergency COMPLAINT: - SHOULDER PAIN, NON INJURY DIAGNOSES: - Pain in right shoulder - Other halfway (current) 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 - Exposure to other specified factors, initial encounter - Type 2 diabetes mellitus with diabetic neuropathy, unspecified - Strain of unspecified muscle, fascia and tendon at shoulder and upper arm level, right arm, initial encounter INPATIENT VISIT TRACKING (12 MO.) No inpatient visits to display in this time frame [email or web address]
[2020-02-14] MEDS ORDERED: NORCO 5-325 TA1 EACH PO (15:59)
== END 2020-02-14 16:26 | disposition home or self-care (01) ==
LOC: ED 13:08
DX: S39.012A Strain of muscle, fascia and tendon of lower back, initial encounter (principal); E11.65 Type 2 diabetes mellitus with hyperglycemia; M25.511 Pain in right shoulder; W10.8XXA Fall (on) (from) other stairs and steps, initial encounter; E11.40 Type 2 diabetes mellitus with diabetic neuropathy, unspecified; G47.30 Sleep apnea, unspecified; Z79.899 Other long term (current) 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
CPT/HCPCS: 73030; 74177; 80053; 81001; 85025; 96375; 99284-25; J1885; J2405; J7030; Q9967

== ENCOUNTER 2020-04-13 15:04 | Emergency (ER) | payer MEDICAID ==
[~2020-04-13] VITALS: Ht 185.4 cm; Wt 99.8 kg
--- OUTSIDE RECORDS SUMMARY | 2020-04-13 15:06 | XMS ---
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 Care History Medical/Surgical 12/18/2019 [facility] - W CONTACTED PATIENT- DISCUSSED INSURANCE CHANGE-PATIENT STATED HE CONTACTED [facility] OVER A MONTH AGO TO SWITCH TO [facility]. HE HAS NOT HEARD BACK AND HAS NOT RECEIVED ANYTHING IN THE MAIL. - CHW PROVIDED [facility] CONTACT NUMBER AND [facility] CUSTOMER SERVICE NUMBER -STATED IT WOULD BE BEST TO MAKE A FOLLOW UP CALL. 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 10/08/2019 [facility] - W CALLED PATIENT- UNABLE TO CONTACT PATIENT- - PATIENT ADDRESS AND INSURANCE IS LISTED IN ANOTHER COUNTY- 09/03/2019 [facility] - PATIENT HAD AN APT WITH PHILLY REINA 09/03/2019 @ 9:00AM. - PATIENT INSURANCE IS MEDICAID FROM A DIFFERENT COUNTY-PATIENT NEEDS TO TRANSFER INSURANCE BEFORE PATIENT CAN BE SEEN FOR ESTABLISHING CARE APT. - CHW RECOMMENDED PATIENT CONTACT NUMBER ON THE BACK OF INSURANCE CARD AND REQUEST TRANSFER TO [employer] INSURANCE FOR THIS AREA. - CHW ADVISED WALK IN CLINIC IS AVAILABLE TO PATIENT BUT ESTABLISHING CARE WITH A PROVIDER IS MOST IMPORTANT DUE TO MED REFILLS NEEDED. E.D. VISIT COUNT (12 MO.) 1 [facility] 8 [facility] Gutierrez TOTAL 9 NOTE: Visits indicate total known visits. 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 - Fall (on) (from) other stairs and steps, initial encounter - Sleep apnea, unspecified - Strain of muscle, fascia and tendon of lower back, initial encounter - Low back pain - Type 2 diabetes mellitus with hyperglycemia - Type 2 diabetes mellitus with diabetic neuropathy, unspecified - Pain in right shoulder 12/17/2019 13:18 [facility] [place] TYPE: Emergency COMPLAINT: - CHEST PAIN DIAGNOSES: - Other chest pain - Sleep apnea, unspecified - Type 2 diabetes mellitus with diabetic neuropathy, unspecified - Gastro-esophageal reflux disease without esophagitis - Other senior care (current) 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 10/03/2019 14:30 [facility] [place] TYPE: Emergency COMPLAINT: - CHEST PAIN DIAGNOSES: - Chest pain, unspecified - Other 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 - Type 2 diabetes mellitus with diabetic neuropathy, unspecified [facility] DIAGNOSES: - Anxiety disorder, unspecified - Other pulmonary embolism without acute cor pulmonale - Other chest pain - Chest pain 09/02/2019 08:30 [facility] [place] TYPE: Emergency COMPLAINT: - SOB DIAGNOSES: - Anemia, unspecified - Dyspnea, unspecified - Sleep apnea, unspecified - Contact with and (suspected) exposure to other viral communicable diseases - Other senior care (current) 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 - Shortness of breath - Other pulmonary embolism without acute cor pulmonale - termination 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 (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 anticoagulants - Type 2 diabetes mellitus with diabetic neuropathy, unspecified 08/27/2019 10:32 MAR[facility]ZA [place] TYPE: Emergency COMPLAINT: - DIZZINESS DIAGNOSES: - Hemorrhage of anus and rectum - Other senior care (current) 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 - Type 2 diabetes mellitus with diabetic neuropathy, unspecified - Gastrointestinal hemorrhage, unspecified 08/21/2019 13:37 [facility] [place] TYPE: Emergency COMPLAINT: - LT HEADED, SOB, DIZZY DIAGNOSES: - Contact with and (suspected) exposure to other viral communicable diseases - Other 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 - Type 2 diabetes mellitus with diabetic neuropathy, unspecified - Shortness of breath - Other pulmonary embolism without acute cor pulmonale - Sleep apnea, unspecified 08/04/2019 13:55 [facility] [place] TYPE: Emergency COMPLAINT: - SHOULDER PAIN, NON INJURY DIAGNOSES: - Pain in right shoulder - Other senior care (current) 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 - Exposure to other specified factors, initial encounter - Type 2 diabetes mellitus with diabetic neuropathy, unspecified - Strain of unspecified muscle, fascia and tendon at shoulder and upper arm level, right arm, initial encounter INPATIENT VISIT TRACKING (12 MO.) No inpatient visits to display in this time frame [email or web address]
[2020-04-13] MEDS ORDERED: DULOXETINE HCL20 MG PO (15:17)
[2020-04-13] MEDS ORDERED: HYDROCODON-ACE1 EA10 PO (18:08)
== END 2020-04-13 19:36 | disposition home or self-care (01) ==
LOC: ED 15:04
DX: S82.862A Displaced Maisonneuve's fracture of left leg, initial encounter for closed fracture (principal); S93.402A Sprain of unspecified ligament of left ankle, initial encounter; W22.8XXA Striking against or struck by other objects, initial encounter; E11.40 Type 2 diabetes mellitus with diabetic neuropathy, unspecified; G47.30 Sleep apnea, unspecified; Z79.899 Other long term (current) 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
CPT/HCPCS: 29515; 73560; 73590; 73610; 99283-25